=== PATIENT | female | born 1990 | race Hispanic/Latino ===

== ENCOUNTER 2017-08-30 15:54 | Inpatient (IN) | payer OTHER ==
[2017-08-30] MEDS ORDERED: Lidocaine 2% MPF 10 ML AMP (For Epidural Use) ONE (16:06)
[2017-08-30] MEDS ORDERED: Bupivacaine HCl 0.5%/Epinephrine 1:200,000/PF 30 ml Vial ONE (16:06)
[2017-08-30] MEDS ORDERED: Bupivacaine PF 0.5% 30 ML VIAL ONE (16:06)
[2017-08-30] MEDS ORDERED: ePHEDrine/0.9% NaCl/PF SYRINGE 50 mg/10 ml ONE (16:06)
[2017-08-30 16:33] VITALS: BMI 52.7
[2017-08-30] MEDS ORDERED: FLU VACC QS2017-18 36 mo. & older 0.5 ML SYRINGE IM ONE (17:30)
[2017-08-30 17:46] LABS: ALT (SGPT) 8 U/L (8-55); AST (SGOT) 18 U/L (5-34); Albumin 3.4 g/dL (3.5-5.0); Alkaline Phosphatase 170 U/L (40-150); Anion Gap 15 mmol/L (10-20); BUN (Urea Nitrogen) 11 mg/dL (7.0-18.7); Bilirubin, Total 0.2 mg/dL (0.2-1.2); Calc. Creatinine Clearance 227 mL/min (70-130); Calcium 9.6 mg/dL (7.8-10.44); Carbon Dioxide 20 mmol/L (22-29); Chloride 104 mmol/L (98-107); Estimated GFR-MDRD Greater than 90; Globulin 3.7 g/dL (2.4-3.5); Glucose 96 mg/dL (70-105); Potassium 3.8 mmol/L (3.5-5.1); Protein, Total 7.1 g/dL (6.0-8.3); Sodium 135 mmol/L (136-145)
[2017-08-30 17:53] LABS: #Monocytes 0.7 thou/uL (0.11-0.59); #Neutrophils 5.8 thou/uL (1.40-6.50); %Basophils 0.2 % (0.0-1.0); %Eosinophils 0.3 % (0.0-10.0); %Lymphocytes 13.2 % (21.0-51.0); %Monocytes 9.7 % (0.0-10.0); %Neutrophils 76.6 % (42.0-75.0); Hemoglobin 12.3 g/dL (12.0-16.0); Large Platelets SLIGHT; MDiff Complete? YES; Mean Corpuscular HGB CONC 35.1 g/dL (32.0-36.0); Mean Corpuscular Hemoglobin 33.3 pg (27.0-31.0); Mean Corpuscular Volume 95.1 fl (81.0-99.0); Mean Platelet Volume 12.2 fL (7.4-10.4); PLT Morphology Comment Appears Decreased; Platelet Count 94 thou/uL (130-400); RBC Distribution Width 11.7 % (11.5-14.5); Red Blood Cell (RBC) Count 3.69 mill/uL (4.20-5.40); White Blood Cell (WBC) Count 7.5 thou/uL (4.8-10.8)
[2017-08-30 18:06] LABS: Amphetamine Not Detected (NotDetected); Barbiturates Screen Not Detected (NotDetected); Benzodiazepine Screen Not Detected (NotDetected); Cocaine Metabolite Screen Not Detected (NotDetected); Medtox Reader # READER 4; Methadone Not Detected (NotDetected); Methamphetamine Not Detected (NotDetected); Opiate Screen Not Detected (NotDetected); Oxycodone Screen Not Detected (NotDetected); Phencyclidine (PCP) Not Detected (NotDetected); THC/Cannabinoid Screen Detected (NotDetected); Tricyclic Screen Not Detected (NotDetected)
[2017-08-30 18:07] LABS: Medtox Control Line Valid? VALID (VALID)
--- NOTE | 2017-08-30 18:24 | PDOC.LDHP ---
Labor and Delivery H&P Chief complaint: other (elevated BP) HPI: 27 yo @ 38w3d by 9w3d US not consistent with LMP presents for evaluation of elevated BPs. She denies headache, abdominal pain, or fevers/chills. SHe denies lower extremity swelling as well. She denies any contractions. She does admit to her normal amount of vaginal discharge, but no vaginal bleeding. She admits to feeling her fetus move. She has also denied any headaches or vision changes. No other concerns. Of note that patient has had a lot of stresses in her life at this time and has missed a lot of C visits. Current gestational age (weeks): 38 (38w3d) Due date: 09/10/17 Dating criteria: first trimester ultrasound Grav: 1 Para: 0 Current complications: other Abnormal US findings: No Current medications: none Previous surgical history: none Social history: none - Physical Exam Abnormal vital signs: elevated BP General: NAD Heart: RRR Lungs: CTAB Abdomen: gravid Extremeties: no edema FHT: category 2 (Tachycardia, baseline 160s, Moderate variability, no decels) [place] contractions every: NA - OB Labs Blood type: O RH: positive Antibody Screen: negative HIV: negative RPR: negative HEPSAg: negative 1 hour GCT: unknown 3 hour GTT: unknown GBS: unknown Rubella: immune - Assessment 1. Elevated BP -Pre-eclampsia workup including Urine Protein, Urine Creatinine, CBC, CMP -Consider BP medications 2. TIUP -GBS pending - heart tones, routine labs 3. Tachycardia -US pending - monitoring -Consider IVF - Plan Plan: observation in L&D <Rohan Shaikh - Last Filed: 08/30/17 18:20> Social history: drug use (marijuana use) - Vaginal Exam cm dilated: 1 Effacement: 50% Station: -3 - Assessment L&D Assessment: medically indicated induction (PIH at term with thrombocytopenia. GBS unknown poor care obesity tachycardia with otherwise reassuring signs.) <Romaine Manzano - Last Filed: 08/31/17 07:26> Allergies/Adverse Reactions: Allergies Allergy/AdvReac Type Severity Reaction Status Date / Time No Known Allergies Allergy Unverified 08/30/17 16:44
[2017-08-30] MEDS ORDERED: LR / Pitocin 40 units/1000 ml 1,000 ML IV PRN (18:34)
[2017-08-30] MEDS ORDERED: Calcium Gluc 4.6 MEQ/10 ML (100 MG/ML) SLOW IVP PRN (18:34)
[2017-08-30] MEDS ORDERED: Ibuprofen 800 MG TAB PO PRN (18:34)
[2017-08-30] MEDS ORDERED: Lidocaine 1% (PF) 30 ML VIAL SC PRN (18:34)
[2017-08-30] MEDS ORDERED: Ondansetron HCl/PF 4 MG/2 ML Vial IVP PRN (18:34)
[2017-08-30] MEDS ORDERED: Magnesium Sulfate 20 gm/500 ml 20 GM/500 ML BAG ONE (18:36)
[2017-08-30 18:44] LABS: Creatinine, Urine 276.16 mg/dL (47-110)
[2017-08-30] MEDS ORDERED: Misoprostol 100 MCG TAB VAG SCH (18:45)
[2017-08-30] MEDS ORDERED: Dinoprostone 10 MG Suppository VAG SCH (18:45)
[2017-08-30] MEDS ORDERED: Magnesium Sulfate 20 GM/WATER 500 ML BAG IVPB SCH (18:45)
[2017-08-30] MEDS: Lactated Ringer's 1,000 ML IV SCH (18:50)
--- NOTE | 2017-08-30 19:14 | ULT ---
ULTRASOUND OB: 08/30/17 HISTORY: Limited care, increased blood pressure. COMPARISON: None. TECHNIQUE: Ultrasound zamudio scale and color evaluation of the pelvis was performed via transabdominal approach. A single viable intrauterine with average ultrasound age of 35 week, 4 day. Estimated date o f delivery 09/30/17. This is concordant with clinical age. The cervical length is 5.4 cm. Biparietal diameter: 37 weeks, 2 days, 9.19 cm. Head circumference: 37 weeks, 0 day, 32.65 cm. Abdominal circumference: 36 weeks, 3 days, 32.53 cm. Femur length: 37 weeks, 0 day, 7.23 cm. Estimated weight is 3023 grams, 69th percentile. Limited evaluation of the spine, including the cervicothoracic and lumbar spine as well as the four c hamber heart, stomach, sacrum, lateral ventricles, cerebellum, three vessel cord were all normal. Umbilical artery peak systolic velocity is 45.4 cm/s. End diastolic velocity is 12.2 cm/s with systol ic to diastolic ratio of 3.7. heart rate is 163 beats per minute. Biophysical profile score is 8/8. Heart rate documented at 163 beats per minute. position is vertex and placenta is anterior. IMPRESSION: Single viable intrauterine with average ultrasound age of 35 week, 4 day. Estimated date of delivery 09/30/17. Estimated weight is 6 lb. 11 oz, 69th percentile. POS: HOME
[2017-08-30] MEDS ORDERED: Labetalol HCl 100 MG/20 ML VIAL SLOW IVP SCH (19:15)
[2017-08-30 19:25] LABS: HBSAg Index 0.22 S/CO (0-0.99); Hep B Surf Ag Non-Reactive S/CO (NonReactive)
[2017-08-30 19:39] LABS: Syphilis Antibody Nonreactive (Nonreactive); Syphilis Antibody Index 0.03 S/CO (<1.00 Non-Reactive)
[2017-08-31] MEDS ORDERED: Chloraseptic Spray 180 ml Bottle PO PRN (01:50)
--- NOTE | 2017-08-31 01:54 | PDOC.LDPN ---
Labor & Delivery Progress Note - Subjective Subjective: comfortable - Objective Vital signs reviewed and normal: yes General: NAD, resting SVE: deferred, plan to check 12 hours after cervidil placement FHT: category 1 - Assessment (1) Term Code(s): Z34.80 - ENCOUNTER FOR SUPRVSN OF NORMAL , UNSP TRIMESTER Current Visit: Yes Status: Acute Comment: Continue labor augmentation with cervidil Recheck cervix 12 hours s/p placement (2) Gestational hypertension Code(s): O13.9 - GESTATIONAL HTN W/O SIGNIFICANT PROTEINURIA, UNSP TRIMESTER Current Visit: Yes Status: Acute Comment: Since receiving IV labetalol, pts BPs have been in the 130s systolic. Continue IV labetalol PRN. Plan: continue plan of care, labor augmentation (cervidil ) -: Plan to recheck cervix 12 hours s/p placement of cervidil <Navneet Feliz - Last Filed: 08/31/17 01:52> Attending Addendum - Attending Addendum I personally evaluated the patient and discussed the management with Dr. I agree with the History, Examination, Assessment and Plan documented above with any addition or exceptions noted below. <Romaine Manzano - Last Filed: 08/31/17 07:29>
[2017-08-31] MEDS: Lactated Ringer's 1,000 ML IV SCH ×3 (02:45→11:47)
[2017-08-31] MEDS: Magnesium Sulfate 20 gm/500 ml 20 GM/500 ML BAG IVPB SCH ×3 (02:45→23:05)
--- NOTE | 2017-08-31 06:09 | PDOC.LDPN ---
Labor & Delivery Progress Note - Subjective Subjective: comfortable - Objective Vital signs reviewed and normal: yes General: NAD, resting SVE: deferred FHT: category 1 (Cat 1: baseline 150, accels presents, no decels, mod variability) [place] contractions every: none - Assessment (1) Term Code(s): Z34.80 - ENCOUNTER FOR SUPRVSN OF NORMAL , UNSP TRIMESTER Current Visit: Yes Status: Acute Comment: Continue labor augmentation with cervidil Recheck cervix 12 hours s/p placement (2) Gestational hypertension Code(s): O13.9 - GESTATIONAL HTN W/O SIGNIFICANT PROTEINURIA, UNSP TRIMESTER Current Visit: Yes Status: Acute Comment: Since receiving IV labetalol, pts BPs have been in the 130s systolic. Continue IV labetalol PRN. Plan: continue plan of care, labor augmentation (No changes at this time, we will recheck cervix 12 hours s/p cervidil placement)
--- NOTE | 2017-08-31 07:16 | PDOC.LDPN ---
Labor & Delivery Progress Note Plan: other (Induction of Labor with cervadil 2/2 Severe Range blood pressure ; Severe PreEclampsia (Initial bp 189/111, platelets @ 94)) -: at 38.3 weeks by 1TUS not consistent with LMP presents with elevated blood pressures from [facility] and with hx of few care visits. 1.)Severe PreEclampsia-Initial bp of 189/111, platelets @ 94. Pt provided with labetalol prn bp>160/110; Magnesium started. Plan: Continue magnesium. Magnesium checks every 4 hours. Continue Labetalol prn bp > 160/110 2.)Induction of Labor 2/2 Severe PreEclampsia-Cervadil placed at 1950 on 08/30 -Labor check @ 0750 on 08/31 and every 4 hours 3.)Early Term IUP-see above.
--- NOTE | 2017-08-31 09:01 | PDOC.LDPN ---
Labor & Delivery Progress Note - Subjective Subjective: comfortable - Objective Vital signs reviewed and normal: yes (bp's 120s/60s) General: NAD, resting Uterine fundus: non tender Dilation: 3 Effacement: 50% Station: -2 FHT: category 2, variable decelerations [place] contractions every: none Resuscitative measures: maternal IV fluids, maternal position change - Assessment (1) Severe pre-eclampsia Code(s): O14.10 - SEVERE PRE-ECLAMPSIA, UNSPECIFIED TRIMESTER Current Visit: Yes Status: Acute (2) Early Term IUP Current Visit: Yes Status: Acute (3) Encounter for induction of labor Code(s): Z34.90 - ENCNTR FOR SUPRVSN OF NORMAL , UNSP, UNSP TRIMESTER Current Visit: Yes Status: Acute Plan: pitocin for augmentation -: Plan: -: at 38.3 weeks by 1TUS not consistent with LMP presents with elevated blood pressures from [facility] and with hx of few care visits. 1.)Severe PreEclampsia-currently asymptomatic with blood pressures in range. Initial bp of 189/111, platelets @ 94. Pt provided with labetalol prn bp>160/110 ; Magnesium started. Plan: Blood pressures were 120s/60s overnight; pt is asymptomatic. Continue magnesium. Magnesium toxicity checks every 4 hours. Continue Labetalol prn bp >160/110 2.)Induction of Labor 2/2 Severe PreEclampsia-Mom not currently in active labor (not johnny and recent check at /-2) Cervadil placed at 1950 on 08/30 -Labor check @ 0750 on 08/31 and every 4 hours -Cervadil pulled at 0750. Will let her eat breakfast and start pitocin afterwards. 3.)Early Term IUP-see above.
[2017-08-31 09:34] LABS: Hemoglobin 11.5 g/dL (12.0-16.0); Mean Corpuscular HGB CONC 35.3 g/dL (32.0-36.0); Mean Corpuscular Hemoglobin 33.6 pg (27.0-31.0); Mean Platelet Volume 12.5 fL (7.4-10.4); Platelet Count 92 thou/uL (130-400); RBC Distribution Width 11.9 % (11.5-14.5); Red Blood Cell (RBC) Count 3.42 mill/uL (4.20-5.40); White Blood Cell (WBC) Count 8.2 thou/uL (4.8-10.8)
[2017-08-31] MEDS ORDERED: LR 500 ML/Oxytocin 10 units 500 ML ONE (09:43)
[2017-08-31] MEDS: LR 500 ML/Oxytocin 10 units 500 ML IV SCH (09:54)
[2017-08-31] MEDS ORDERED: Fentanyl 4 mcg/Marc 0.1% Cadd 100 ML ONE (10:06)
--- NOTE | 2017-08-31 10:06 | PDOC.EVN ---
Event Note - Event Note Event Note: Pt doing well, has mild URI sx since crhistmas with mildly productive cough of zamudio-white sputum but no pink. She denies SOB or RUQ pain. +FM. She does desire an epidural AVSS NAD Resp unlabored FHT Cat I [place] none Laboratory Last Values WBC 8.2 thou/uL (4.8-10.8) 08/31/17 08:59 RBC 3.42 mill/uL (4.20-5.40) L 08/31/17 08:59 Hgb 11.5 g/dL (12.0-16.0) L 08/31/17 08:59 Hct 32.5 % (36.0-47.0) L 08/31/17 08:59 MCV 95.0 fl (81.0-99.0) 08/31/17 08:59 MCH 33.6 pg (27.0-31.0) H 08/31/17 08:59 MCHC 35.3 g/dL (32.0-36.0) 08/31/17 08:59 RDW 11.9 % (11.5-14.5) 08/31/17 08:59 Plt Count 92 thou/uL (130-400) L 08/31/17 08:59 MPV 12.5 fL (7.4-10.4) H 08/31/17 08:59 Neutrophils % 76.6 % (42.0-75.0) H 08/30/17 17:05 Neutrophils % (Manual) Not Reportable 08/30/17 17:05 Lymphocytes % 13.2 % (21.0-51.0) L 08/30/17 17:05 Monocytes % 9.7 % (0.0-10.0) 08/30/17 17:05 Eosinophils % 0.3 % (0.0-10.0) 08/30/17 17:05 Basophils % 0.2 % (0.0-1.0) 08/30/17 17:05 Neutrophils # 5.8 thou/uL (1.40-6.50) 08/30/17 17:05 Lymphocytes # 1.0 thou/uL (1.20-3.40) L 08/30/17 17:05 Monocytes # 0.7 thou/uL (0.11-0.59) H 08/30/17 17:05 Eosinophils # 0.0 thou/uL (0.0-0.7) 08/30/17 17:05 Basophils # 0.0 thou/uL (0.0-0.2) 08/30/17 17:05 Large Platelets SLIGHT 08/30/17 17:05 Plt Morphology Comment Appears Decreased L 08/30/17 17:05 Sodium 135 mmol/L (136-145) L 08/30/17 17:05 Potassium 3.8 mmol/L (3.5-5.1) 08/30/17 17:05 Chloride 104 mmol/L (98-107) 08/30/17 17:05 Carbon Dioxide 20 mmol/L (22-29) L 08/30/17 17:05 Anion Gap 15 mmol/L (10-20) 08/30/17 17:05 BUN 11 mg/dL (7.0-18.7) 08/30/17 17:05 Creatinine 0.76 mg/dL (0.6-1.1) 08/30/17 17:05 Estimated GFR (MDRD) Greater than 90 08/30/17 17:05 Glucose 96 mg/dL (70-105) 08/30/17 17:05 Calcium 9.6 mg/dL (7.8-10.44) 08/30/17 17:05 Total Bilirubin 0.2 mg/dL (0.2-1.2) 08/30/17 17:05 AST 18 U/L (5-34) 08/30/17 17:05 ALT 8 U/L (8-55) 08/30/17 17:05 Alkaline Phosphatase 170 U/L (40-150) H 08/30/17 17:05 Serum Total Protein 7.1 g/dL (6.0-8.3) 08/30/17 17:05 Albumin 3.4 g/dL (3.5-5.0) L 08/30/17 17:05 Globulin 3.7 g/dL (2.4-3.5) H 08/30/17 17:05 Albumin/Globulin Ratio 0.9 g/dL (1.2-2.2) L 08/30/17 17:05 U Random Total Protein 41 mg/dL 08/30/17 17:27 Urine Creatinine 276.16 mg/dL (47-110) H 08/30/17 17:27 Urine Opiates Screen Not Detected (NotDetected) 08/30/17 17:27 Ur Oxycodone Screen Not Detected (NotDetected) 08/30/17 17:27 Urine Methadone Screen Not Detected (NotDetected) 08/30/17 17:27 Ur Propoxyphene Screen Not Detected (NotDetected) 08/30/17 17:27 Ur Barbiturates Screen Not Detected (NotDetected) 08/30/17 17:27 Ur Tricyclics Screen Not Detected (NotDetected) 08/30/17 17:27 Ur Phencyclidine Scrn Not Detected (NotDetected) 08/30/17 17:27 Ur Amphetamines Screen Not Detected (NotDetected) 08/30/17 17:27 U Methamphetamines Scrn Not Detected (NotDetected) 08/30/17 17:27 U Benzodiazepines Scrn Not Detected (NotDetected) 08/30/17 17:27 U Cocaine Metab Screen Not Detected (NotDetected) 08/30/17 17:27 U Cannabinoids Screen Detected (NotDetected) H 08/30/17 17:27 Drug Screen Comment () 08/30/17 17:27 Syphilis IgG/IgM Ab Nonreactive (Nonreactive) 08/30/17 17:04 Hep Bs Antigen Non-Reactive S/CO (NonReactive) 08/30/17 17:04 Blood Type O POSITIVE 08/30/17 17:04 Blood Bank Comment See comment: 08/30/17 17:04 A/P: * 38.4 week IUP with Cat I FHT * IOL for severe pre-e by BPs and platelets. Plts are stable. Cervidil, pitocin , Magnesium. So far has required 1 dose of labetalol
[2017-08-31] MEDS: Fentanyl 4mcg/Marcaine 0.1% Cassette 100 ML EPIDURAL SCH ×2 (10:40→20:11)
[2017-08-31] MEDS: ePHEDrine/0.9% NaCl/PF SYRINGE 50 mg/10 ml SLOW IVP PRN ×5 (11:00→11:40)
[2017-08-31] MEDS ORDERED: Lactated Ringer's 500 ML IV PRN (11:14)
[2017-08-31] MEDS ORDERED: Promethazine HCl 25 MG/ML VIAL IM PRN (11:14)
[2017-08-31] MEDS ORDERED: Eucerin (Mineral Oil/Petrolatum,White) 30 gm Jar TOP PRN (11:14)
[2017-08-31] MEDS ORDERED: Naloxone HCl 0.4 mg/ml Vial IVP PRN ×2 (11:14)
[2017-08-31] MEDS ORDERED: Ondansetron HCl/PF 4 MG/2 ML Vial IVP PRN (11:14)
[2017-08-31] MEDS ORDERED: Acetaminophen 325 MG TAB PO PRN (11:14)
[2017-08-31] MEDS ORDERED: diphenhydrAMINE 50 MG/ML VIAL IVP PRN (11:14)
[2017-08-31] MEDS ORDERED: Communication Order-Pharmacy FS SCH (11:15)
--- NOTE | 2017-08-31 13:03 | PDOC.LDPN ---
Labor & Delivery Progress Note - Subjective Subjective: other (called to bedside for persistent hypotension after epidural placement. baby with recurrent decelerations. Maternal bp to 62/24.) - Objective Abnormal vital signs: hypotensive (lowest @ 62/24) General: other (nausea and vomited X1) Uterine fundus: non tender FHT: category 2, late decelerations, absent or minimal variables [place] contractions every: irregular Resuscitative measures: maternal oxygen, maternal IV fluids (gave a total of 1500ml of lactated ringers), other (also provided Mom with two, 10mg doses of ephedrin. Anesthesia paged.) - Assessment (1) Severe pre-eclampsia Code(s): O14.10 - SEVERE PRE-ECLAMPSIA, UNSPECIFIED TRIMESTER Current Visit: Yes Status: Acute (2) Early Term IUP Current Visit: Yes Status: Acute (3) Encounter for induction of labor Code(s): Z34.90 - ENCNTR FOR SUPRVSN OF NORMAL , UNSP, UNSP TRIMESTER Current Visit: Yes Status: Acute (4) Hypotension Current Visit: Yes Status: Acute Plan: other -: 27 yo @ 38.4 with severe preeclampsia now s/p epidural placement with persistent hypotension and recurrent late decelerations of baby. Plan: Gave mom an initial 1L bolus of fluids. 2 doses of 10mg of ephedrin and an additional 500 ml bolus given. Paged anesthesia for assistance. Held pitocin and the epidural at this time.
--- NOTE | 2017-08-31 13:14 | PDOC.LDPN ---
Labor & Delivery Progress Note - Subjective Subjective: comfortable, vaginal pressure - Objective Vital signs reviewed and normal: yes General: NAD, resting, breathing through contractions Uterine fundus: non tender Dilation: 4 Effacement: 50% Station: -2 FHT: category 1 [place] contractions every: minimal AROM: meconium stained fluid (moderate meconium) FSE placed: yes Resuscitative measures: maternal oxygen, maternal IV fluids, maternal position change - Assessment (1) Severe pre-eclampsia Code(s): O14.10 - SEVERE PRE-ECLAMPSIA, UNSPECIFIED TRIMESTER Current Visit: Yes Status: Acute (2) Early Term IUP Current Visit: Yes Status: Acute (3) Encounter for induction of labor Code(s): Z34.90 - ENCNTR FOR SUPRVSN OF NORMAL , UNSP, UNSP TRIMESTER Current Visit: Yes Status: Acute (4) Hypotension Current Visit: Yes Status: Resolved Plan: continue plan of care, labor augmentation, pitocin for augmentation, resuscitative measures, other (FSE placed. Mom with VSS and baby with category 1 strip. Will monitor for one hour and if baby tolerates FSE will restart pitocin for augmentation of labor. Hypotension resolved. Epidural restarted at a lower rate. Patient received a total of 30mg ephedrine and 1500ml of lactated ringers.)
--- NOTE | 2017-08-31 16:43 | PDOC.LDPN ---
Labor & Delivery Progress Note - Subjective Subjective: comfortable - Objective Vital signs reviewed and normal: yes General: NAD, resting Uterine fundus: non tender SVE: Performed by Nurse Dilation: 5.5 Effacement: 75% Station: -2 FHT: category 1 (Baseline 120s), variability present [place] contractions every: 3 min - Assessment (1) Early Term IUP Current Visit: Yes Status: Acute (2) Encounter for induction of labor Code(s): Z34.90 - ENCNTR FOR SUPRVSN OF NORMAL , UNSP, UNSP TRIMESTER Current Visit: Yes Status: Acute (3) Severe pre-eclampsia Code(s): O14.10 - SEVERE PRE-ECLAMPSIA, UNSPECIFIED TRIMESTER Current Visit: Yes Status: Acute Qualifiers: Trimester: third trimester Qualified Code(s): O14.13 - Severe pre-eclampsia , third trimester Plan: continue plan of care -: BP stable. Will continue to monitor. No signs of Mg toxicity, UOP is 150-200 ml/hr. Pit at 10. Next check planned for 6 pm.
--- NOTE | 2017-08-31 18:30 | PDOC.LDPN ---
Labor & Delivery Progress Note - Subjective Subjective: comfortable - Objective Vital signs reviewed and normal: yes General: NAD, resting, breathing through contractions SVE: Performed by nurse Dilation: 5.5 Effacement: 75% Station: -2 FHT: category 1 [place] contractions every: 3-5 min AROM: meconium stained fluid IUPC placed: yes (Placed at 1820) - Assessment (1) Term Code(s): Z34.80 - ENCOUNTER FOR SUPRVSN OF NORMAL , UNSP TRIMESTER Current Visit: Yes Status: Acute Comment: Continue labor augmentation with cervidil Recheck cervix 12 hours s/p placement (2) Gestational hypertension Code(s): O13.9 - GESTATIONAL HTN W/O SIGNIFICANT PROTEINURIA, UNSP TRIMESTER Current Visit: Yes Status: Acute Comment: Since receiving IV labetalol, pts BPs have been in the 130s systolic. Continue IV labetalol PRN. Plan: continue plan of care, pitocin for augmentation, other -: BPs have been stable Pitocin currently at 12, will titrate for MV units 180-200. IUPC placed at 1820 Will recheck cervix at 2030. Continue current plan of care. <Navneet Feliz - Last Filed: 08/31/17 18:28> Attending Addendum - Attending Addendum FHT reviewed. IUPC placed by resident. Titrate pitocin to MVU 180-200 and reassess in 2 hours <Eileen Hernandez - Last Filed: 08/31/17 19:31>
--- NOTE | 2017-08-31 20:34 | PDOC.LDPN ---
Labor & Delivery Progress Note - Subjective Subjective: comfortable - Objective Vital signs reviewed and normal: yes General: NAD, resting, breathing through contractions SVE: Performed by nurse Dilation: 5.5 Effacement: 75% Station: -2 FHT: category 1 (Mod Variability, Baseline 140, accels present, 1 variable decel present ) [place] contractions every: 3-4 min Procedures: FSE placed again by nurse after it fell out AROM: meconium stained fluid (moderate, AROM performed during day from scalp electrode placement) FSE placed: yes - Assessment (1) Term Code(s): Z34.80 - ENCOUNTER FOR SUPRVSN OF NORMAL , UNSP TRIMESTER Current Visit: Yes Status: Acute Comment: Continue labor augmentation with cervidil Recheck cervix 12 hours s/p placement (2) Gestational hypertension Code(s): O13.9 - GESTATIONAL HTN W/O SIGNIFICANT PROTEINURIA, UNSP TRIMESTER Current Visit: Yes Status: Ruled-out Comment: Since receiving IV labetalol, pts BPs have been in the 130s systolic. Continue IV labetalol PRN. (3) Severe pre-eclampsia Code(s): O14.10 - SEVERE PRE-ECLAMPSIA, UNSPECIFIED TRIMESTER Current Visit: Yes Status: Acute Comment: Since receiving IV labetalol, pts BPs have been in the 130s systolic. Continue IV labetalol PRN. Patient is receiving mag. (4) Morbid obesity Code(s): E66.01 - MORBID (SEVERE) OBESITY DUE TO EXCESS CALORIES Current Visit : Yes Status: Acute Plan: continue plan of care (Continue plan of care, will recheck in 2 hours at 1030, Continue titrating pit), pitocin for augmentation (Pit at 16 currently)
[2017-08-31] MEDS: Diabetic Tussin 200 MG/10 ML UDCUP PO PRN (21:49)
[2017-09-01] MEDS: Fentanyl 4mcg/Marcaine 0.1% Cassette 100 ML EPIDURAL SCH (01:55)
[2017-09-01] MEDS ORDERED: Bicitra 30 ML UDCUP ONE (02:15)
[2017-09-01] MEDS ORDERED: Bicitra 30 ML UDCUP PO SCH (02:15)
[2017-09-01] MEDS ORDERED: CEFAZOLIN/Water 2 GM/20 ML SYRINGE ONE (02:16)
[2017-09-01] MEDS ORDERED: Morphine PF 1 MG/ML SYR ONE (02:21)
[2017-09-01] MEDS ORDERED: Fentanyl 100 MCG/2 ML VIAL ONE (02:21)
[2017-09-01] MEDS ORDERED: Lidocaine 2% PF 5 ML VIAL ONE ×2 (02:22→03:58)
[2017-09-01] MEDS ORDERED: Ondansetron HCl/PF 4 MG/2 ML Vial ONE (02:22)
[2017-09-01] MEDS ORDERED: Oxytocin 10 UNITS/ML VIAL ONE ×2 (02:22→03:32)
[2017-09-01] MEDS ORDERED: PHENYLEPHRINE-NS 100 MCG/ML 10 ML SYRINGE ONE (02:45)
[2017-09-01] MEDS ORDERED: Naloxone HCl 0.4 mg/ml Vial IVP PRN ×2 (03:05)
[2017-09-01] MEDS ORDERED: diphenhydrAMINE 50 MG/ML VIAL IVP PRN (03:05)
[2017-09-01] MEDS ORDERED: Promethazine HCl 25 MG SUPP PR PRN (03:05)
[2017-09-01] MEDS ORDERED: Ondansetron HCl/PF 4 MG/2 ML Vial IVP PRN (03:05)
[2017-09-01] MEDS ORDERED: Ketorolac Tromethamine 30 MG/ML VIAL IVP PRN (03:05)
[2017-09-01] MEDS ORDERED: Promethazine HCl 25 MG/ML VIAL IM PRN (03:05)
[2017-09-01] MEDS ORDERED: Naloxone HCl 0.4 mg/ml Vial IV PRN (03:05)
[2017-09-01] MEDS ORDERED: Eucerin (Mineral Oil/Petrolatum,White) 30 gm Jar TOP PRN (03:05)
[2017-09-01] MEDS ORDERED: HYDROmorphone 2 MG/ML VIAL SLOW IVP PRN (03:06)
[2017-09-01] MEDS ORDERED: Ketorolac Tromethamine 30 MG/ML VIAL IVP SCH (03:15)
[2017-09-01] MEDS ORDERED: Communication Order-Pharmacy FS SCH (03:15)
[2017-09-01 03:26] LABS: Actual Bicarbonate (HCO3a) 22.3 mEq/L (22-26); Base Excess (BEa) -9.4 mEq/L (0 (+/-) 2.5)
[2017-09-01] MEDS ORDERED: HYDROcodone/Acetaminophen 5/325 mg Tablet PO PRN ×5 (04:33→10:47)
[2017-09-01] MEDS ORDERED: Simethicone Chewable 80 MG TAB PO PRN (04:33)
[2017-09-01] MEDS ORDERED: Lanolin Ointment 7 GM TUBE TOP PRN (04:33)
[2017-09-01] MEDS ORDERED: Adacel (T-DAP) 0.5 ML VIAL IM ONE (04:33)
[2017-09-01] MEDS ORDERED: diphenhydrAMINE 25 MG CAP PO PRN (04:33)
[2017-09-01] MEDS ORDERED: Meperidine HCl/PF 25 MG/ML VIAL ONE ×2 (04:46→05:00)
[2017-09-01] MEDS: Meperidine HCl/PF 25 MG/ML VIAL SLOW IVP PRN ×2 (04:47→05:06)
[2017-09-01] MEDS ORDERED: Gentamicin 80 MG/2 ML VIAL IVPB SCH (05:00)
[2017-09-01] MEDS: Clindamycin/D5W 900 MG in Premix Bag 1 BAG IVPB SCH ×3 (05:09→22:10)
[2017-09-01] MEDS: Gentamicin Sulfate 410 MG in Sodium Chloride 0.9% 100 ML IVPB SCH (06:23)
--- NOTE | 2017-09-01 06:53 | OP-2 ---
DATE OF PROCEDURE: 09/01/2017 RESIDENT: Sim Ontiveros MD ALIGNING INSPECTOR: Eileen Hernandez MD ATTENDING SURGEON: Eileen Hernandez MD PROCEDURE: Primary low transverse indicated for arrest of dilation. PREOPERATIVE DIAGNOSES: 1. Term intrauterine . 2. Preeclampsia with severe range blood pressures, requiring magnesium. 3. Thrombocytopenia, likely secondary to preeclampsia. 4. GBS unknown. POSTOPERATIVE DIAGNOSES: 1. Term intrauterine , delivered. 2. Preeclampsia with severe range blood pressures and thrombocytopenia, requiring magnesium. 3. GBS unknown ANESTHESIA: Epidural. INDICATIONS: Ms. Kay is a 27-year-old G1, P0 at 38.4 weeks gestation, who presented for triage of elevated blood pressure and was induced for preeclampsia with severe range blood pressure and thrombocytopenia. After arrest of dilation, a primary was performed. PROCEDURE IN DETAIL: Risks, benefits, and alternatives were explained to the patient, who expressed understanding and provided consent. Preoperative antibiotics of cefazolin 2 grams IV were given. The patient was taken to the operating room and had a bolus through her epidural anesthesia. She was placed in supine position with left lateral tilt and was prepped and draped in the usual sterile fashion. Pfannenstiel incision was made with scalpel and carried down to level of fascia, which was sharply nicked. The fascia was extended bilaterally with curved Chambers scissors. The inferior superior edge of the fascia were elevated with Amor clamps and the underlying rectus muscles were sharply and bluntly dissected free. The rectus muscles were divided digitally and manually retracted. The peritoneum was bluntly entered. An Med O retractor was placed. A low transverse curvilinear score was made with a scalpel and the uterus was entered in the midline with the scalpel. Thick meconium-stained fluid was seen. Hysterotomy was extended manually in the cranio/caudal fashion. was noted to be in the vertex position and noted to be deep in the pelvis. After the head was disengaged and elevated, the infant was delivered easily by fundal pressure. Mouth and nares were bulb suctioned. Cord was cut and clamped. A cord segment was obtained for cord gases. Cord blood was also obtained at this time. Placenta was manually extracted. The uterus was externalized and the endometrium was curetted with dry lap. The uterus was then replaced and the hysterotomy was closed with an 0 PDS suture in a running locking fashion. This was followed by a nonlocking imbricating suture using 0 PDS. Hemostasis was noted. The abdomen was swept free of clots. Med O retractor was removed and the hysterotomy was again inspected and found to be hemostatic. The peritoneum was closed with a running 2-0 Monocryl suture. The fascia was closed with 2 separate running nonlocking 0 PDS sutures. The skin was reapproximated with isaiah and pressure dressing was applied. All counts were correct x3. The patient tolerated the procedure well and was taken back to Labor and Delivery floor for an additional 24 hours of magnesium in stable condition. ESTIMATED BLOOD LOSS: 800 mL COMPLICATIONS: None. SPECIMENS: Cord blood and gas sent to lab for blood type analysis FINDINGS: Grossly normal female with Apgars of 8 and 9, delivered at 0315 hours. Grossly normal placenta with three-vessel cord discarded. DRAINS: Mcdowell catheter to gravity, draining clear urine. The patient had approximately 150 mL urine output during the procedure. Dr. Hernandez was present for the entire procedure. ESPERANZA
[2017-09-01] MEDS: Prenatal Vitamin 1 TAB PO SCH (07:30)
--- NOTE | 2017-09-01 07:47 | PDOC.PP ---
Post Progress Note Post Day #: 1 Subjective: She reports her pain to be a 6/10. Reports minimal bleeding. Has not ambulated or passed flatus at this point. She is planning to eat some jello for breakfast. BP's overnight in the 140s-150s systolic. Denies headache or vision changes. PO intake tolerated: yes Flatus: no Ambulation: no Vital Signs (12 hours) Temp Pulse Resp 08/31/17 20:00 97.8 F 95 22 H Weight Weight 130.635 kg - Physical Examination General: NAD Cardiovascular: no m/r/g, RRR Respiratory: clear to auscultation bilaterally, non-labored breathing Abdominal: + bowel sounds, appropriately TTP Deviation from normal: adequate urine output via michele Skin: CS incision dry & intact, no rash Neurological: no gross focal deficits (normal patellar reflexes) Psychiatric: A&Ox3, normal affect Result Diagrams: 08/31/17 08:59 08/30/17 17:05 Additional Labs: Post Labs Blood Type O POSITIVE 08/30/17 17:04 Hep Bs Antigen Non-Reactive S/CO (NonReactive) 08/30/17 17:04 Rubella IgG Antibody 2.43 index (Immune >0.99) 08/30/17 17:04 (1) Severe pre-eclampsia Code(s): O14.10 - SEVERE PRE-ECLAMPSIA, UNSPECIFIED TRIMESTER Status: Acute Qualifiers: Trimester: third trimester Qualified Code(s): O14.13 - Severe pre-eclampsia , third trimester Comment: Pt is currently on magnesium. Will continue for 24-48 hours . Will continue magnesium toxicity checks every 4 hours. Will continue to monitor bp's and provide labetalol prn. Will continue to monitor I/O 's, renal function, patellar reflex etc for s/s of magnesium toxicity. (2) Early Term IUP Status: Acute Comment: 27 yo -->1 presents with severe preeclampsia at 38.3wks and was subsequently induced. She is now s/p csection 2/2 arrest of dilation. (3) Encounter for induction of labor Code(s): Z34.90 - ENCNTR FOR SUPRVSN OF NORMAL , UNSP, UNSP TRIMESTER Status: Acute Comment: see above. (4) Arrest of dilation, delivered, current hospitalization Code(s): O62.1 - SECONDARY UTERINE INERTIA Status: Acute Comment: Arrest of dilation overnight. Taken for csection, now s/p LTCS @ 0300. (5) Delivered by section Code(s): O82 - ENCOUNTER FOR DELIVERY WITHOUT INDICATION Status: Acute Comment: Will monitor I/O's. Advance diet as tolerated and encourage PO intake, and ambulation. Will provide ibuprofen and norco for adequate pain control. CBC and CMP post csection are pending. (6) Morbid obesity Code(s): E66.01 - MORBID (SEVERE) OBESITY DUE TO EXCESS CALORIES Status: Acute (7) Hypotension Status: Resolved
[2017-09-01] MEDS: Docusate Calcium (SURFAK) 240 MG CAP PO SCH ×2 (09:00→22:10)
[2017-09-01 10:01] LABS: Hemoglobin 9.5 g/dL (12.0-16.0); Mean Corpuscular HGB CONC 35.1 g/dL (32.0-36.0); Mean Corpuscular Hemoglobin 33.8 pg (27.0-31.0); Mean Corpuscular Volume 96.2 fl (81.0-99.0); Mean Platelet Volume 12.2 fL (7.4-10.4); Platelet Count 76 thou/uL (130-400); RBC Distribution Width 11.6 % (11.5-14.5); White Blood Cell (WBC) Count 9.3 thou/uL (4.8-10.8)
--- NOTE | 2017-09-01 10:09 | PDOC.EVN ---
Event Note - Event Note Event Note: Notified at 1005 that patient temp now 102. On Gent and Clinda. I will add ( resident to order) ampicillin for gram pos coverage.
[2017-09-01 10:13] LABS: ALT (SGPT) 7 U/L (8-55); AST (SGOT) 23 U/L (5-34); Albumin 2.5 g/dL (3.5-5.0); Alkaline Phosphatase 137 U/L (40-150); Anion Gap 13 mmol/L (10-20); BUN (Urea Nitrogen) 8 mg/dL (7.0-18.7); Bilirubin, Total 0.3 mg/dL (0.2-1.2); Calc. Creatinine Clearance 199 mL/min (70-130); Carbon Dioxide 19 mmol/L (22-29); Chloride 99 mmol/L (98-107); Estimated GFR-MDRD 78; Globulin 2.8 g/dL (2.4-3.5); Glucose 114 mg/dL (70-105); Potassium 3.7 mmol/L (3.5-5.1); Protein, Total 5.3 g/dL (6.0-8.3); Sodium 127 mmol/L (136-145)
--- NOTE | 2017-09-01 10:21 | PDOC.EVN ---
Event Note - Event Note Event Note: Flu A POSITIVE. 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 Although SXs are >24 hours, we will add Tamiflu as some temperature effect may be due to this viral syndrome as well.
--- NOTE | 2017-09-01 10:26 | PDOC.PP ---
Post Progress Note Post Day #: 1 Subjective: Pt found to have a temperature of 102.6F, currently on gentamicin and clindamicin. Mom had an unknown GBS status. Mom has also been complaining of a cold for 1-2 days. Vital Signs (12 hours) Temp Pulse Resp 09/01/17 08:00 102.1 F H 114 H 22 H Weight Weight 130.635 kg Result Diagrams: 09/01/17 09:36 09/01/17 09:36 Additional Labs: Post Labs Blood Type O POSITIVE 08/30/17 17:04 Hep Bs Antigen Non-Reactive S/CO (NonReactive) 08/30/17 17:04 Rubella IgG Antibody 2.43 index (Immune >0.99) 08/30/17 17:04 (1) Influenza A Code(s): J10.1 - FLU DUE TO OTH IDENT INFLUENZA VIRUS W OTH RESP MANIFEST Status: Acute Comment: After spiking a fever this morning, mom was found to be influenza A positive. Will start Tamiflu although since Mom has had cold like symptoms for ~2 days, the effectiveness of tamiflu may be diminished. (2) Chorioamnionitis, delivered, current hospitalization Code(s): O41.1290 - CHORIOAMNIONITIS, UNSP TRIMESTER, NOT APPLICABLE OR UNSP Status: Acute Comment: Mom was found to have a fever this morning after having a csection last night. Started on gentamicin and clindamicin post section. However, do to spiking a fever over 101F, we will add ampicillin for triple therapy for her IAI/chorioamionitis. Will continue to monitor vitals signs and provide supportive care. (3) Severe pre-eclampsia Code(s): O14.10 - SEVERE PRE-ECLAMPSIA, UNSPECIFIED TRIMESTER Status: Acute Qualifiers: Trimester: third trimester Qualified Code(s): O14.13 - Severe pre-eclampsia , third trimester Comment: Pt's platelets were 76 this morning (down from yesterday at 90). Will recheck this evening. No s/s of active bleeding. She is currently on magnesium. Will continue for 24 hours and if continued signs of preeclampsia with severe features, we will continue mag for an additional 24 hours. Will continue magnesium toxicity checks every 4 hours. Will continue to monitor bp's and provide labetalol prn. Will continue to monitor I/O's, renal function, patellar reflex etc for s/s of magnesium toxicity. (4) Thrombocytopenia Code(s): D69.6 - THROMBOCYTOPENIA, UNSPECIFIED Status: Acute Comment: 2/2 Preeclampsia with severe features and s/p csection at 0300 this am. Will continue to monitor. (5) Early Term IUP Status: Acute Comment: 27 yo -->1 presents with severe preeclampsia at 38.3wks and was subsequently induced. She is now s/p csection 2/2 arrest of dilation. (6) Encounter for induction of labor Code(s): Z34.90 - ENCNTR FOR SUPRVSN OF NORMAL , UNSP, UNSP TRIMESTER Status: Acute Comment: see above. (7) Arrest of dilation, delivered, current hospitalization Code(s): O62.1 - SECONDARY UTERINE INERTIA Status: Acute Comment: Arrest of dilation overnight. Taken for csection, now s/p LTCS @ 0300. (8) Delivered by section Code(s): O82 - ENCOUNTER FOR DELIVERY WITHOUT INDICATION Status: Acute Comment: Will monitor I/O's. Advance diet as tolerated and encourage PO intake, and ambulation. Will provide ibuprofen and norco for adequate pain control. CBC and CMP post csection are pending. (9) Morbid obesity Code(s): E66.01 - MORBID (SEVERE) OBESITY DUE TO EXCESS CALORIES Status: Acute (10) Hypotension Status: Resolved
[2017-09-01] MEDS ORDERED: Acetaminophen 650 MG in Premix Bag 1 BAG IVPB PRN (10:37)
[2017-09-01] MEDS ORDERED: Acetaminophen 1,000 MG in Premix Bag 1 BAG IVPB PRN (10:45)
[2017-09-01] MEDS ORDERED: Acetaminophen 650 MG in Premix Bag 1 BAG IVPB SCH (10:45)
[2017-09-01] MEDS: Lactated Ringer's 1,000 ML IV SCH ×3 (11:05→19:49)
[2017-09-01] MEDS: Magnesium Sulfate 20 gm/500 ml 20 GM/500 ML BAG IVPB SCH ×2 (11:14→21:18)
--- NOTE | 2017-09-01 11:37 | PDOC.EVN ---
Event Note - Event Note Event Note: Platelets this AM around 0800 now 75...still on Mag. Recheck at 1999 (12 hours) . LFTs ok, creatinie OK...so no criteria for help now. Urine OK
[2017-09-01] MEDS ORDERED: HYDROcodone/Acetaminophen 5/325 mg Tablet PO SCH (12:00)
--- NOTE | 2017-09-01 12:16 | PDOC.EVN ---
Event Note - Event Note Event Note: CXR ordered for Influenza A positive...r/o pulmonary process.
[2017-09-01] MEDS: Ampicillin 2 GM in Sodium Chloride 0.9% 100 ML IVPB SCH ×3 (13:37→23:58)
[2017-09-01] MEDS: Oseltamivir 75 MG CAP PO SCH ×2 (13:39→20:54)
--- NOTE | 2017-09-01 15:21 | RAD ---
PORTABLE CHEST: HISTORY: Influenza A positive. FINDINGS: Heart size and mediastinum are within normal limits. The lungs are clear of infiltrates. No bony fi ndings. IMPRESSION: No active intrathoracic disease. POS: [facility]
--- NOTE | 2017-09-01 17:08 | PDOC.PP ---
Post Progress Note Post Day #: 1 Subjective: Patient doing well overall. Continues to complain of URI sx. She denies SHARPE, nausea, flushing/diaphoresis. PO intake tolerated: yes Vital Signs (12 hours) Temp Pulse Resp BP 09/01/17 16:00 98.4 F 93 20 121/67 09/01/17 12:00 102.5 F H 114 H 22 H 132/68 09/01/17 08:00 102.1 F H 114 H 22 H Weight Weight 130.635 kg - Physical Examination General: NAD Cardiovascular: no m/r/g, RRR Respiratory: clear to auscultation bilaterally Abdominal: + bowel sounds Psychiatric: A&Ox3 Result Diagrams: 09/01/17 09:36 09/01/17 09:36 Additional Labs: Post Labs Blood Type O POSITIVE 08/30/17 17:04 Hep Bs Antigen Non-Reactive S/CO (NonReactive) 08/30/17 17:04 Rubella IgG Antibody 2.43 index (Immune >0.99) 08/30/17 17:04 (1) Severe pre-eclampsia Code(s): O14.10 - SEVERE PRE-ECLAMPSIA, UNSPECIFIED TRIMESTER Status: Acute Qualifiers: Trimester: third trimester Qualified Code(s): O14.13 - Severe pre-eclampsia , third trimester Comment: No signs/sx of Mg toxicity. BPs well-controlled. Urine outpt between 100-400 cc/hr With thrombocytopenia, will repeat cbc this evening. Plt transfusion may be required if < 50,000 or if pt develops signs of bleeding. (2) Chorioamnionitis, delivered, current hospitalization Code(s): O41.1290 - CHORIOAMNIONITIS, UNSP TRIMESTER, NOT APPLICABLE OR UNSP Status: Acute Comment: Continue Amp/Gent/Clinda. Tylenol for fever.
[2017-09-01] MEDS: LR 500 ML/Oxytocin 10 units 500 ML IV SCH (19:24)
[2017-09-01] MEDS: [UNRECOGNIZED DRUG - REMARK] FS SCH (19:24)
[2017-09-01] MEDS ORDERED: Acetaminophen 1,000 MG in Premix Bag 1 BAG IVPB SCH ×2 (20:00→23:59)
[2017-09-01 21:19] LABS: #Lymphocytes 0.8 thou/uL (1.20-3.40); #Monocytes 0.5 thou/uL (0.11-0.59); #Neutrophils 7.7 thou/uL (1.40-6.50); %Eosinophils 0.4 % (0.0-10.0); %Lymphocytes 8.6 % (21.0-51.0); %Monocytes 5.9 % (0.0-10.0); %Neutrophils 85.1 % (42.0-75.0); Hemoglobin 9.4 g/dL (12.0-16.0); Mean Corpuscular HGB CONC 35.1 g/dL (32.0-36.0); Mean Corpuscular Hemoglobin 33.7 pg (27.0-31.0); Mean Corpuscular Volume 95.9 fl (81.0-99.0); Mean Platelet Volume 11.6 fL (7.4-10.4); Platelet Count 76 thou/uL (130-400); RBC Distribution Width 11.6 % (11.5-14.5); Red Blood Cell (RBC) Count 2.79 mill/uL (4.20-5.40); White Blood Cell (WBC) Count 9.1 thou/uL (4.8-10.8)
--- NOTE | 2017-09-01 22:24 | PDOC.PP ---
Post Progress Note Post Day #: 1 Subjective: Patient states that she is doing well, she does not have any complaints. She denies any headaches, vision changes, nausea, diaphoresis. PO intake tolerated: yes Vital Signs (12 hours) Temp Pulse Resp BP 09/01/17 20:00 102.0 F H 105 H 22 H 09/01/17 16:00 98.4 F 93 20 121/67 09/01/17 12:00 102.5 F H 114 H 22 H 132/68 Weight Weight 130.635 kg - Physical Examination General: NAD Cardiovascular: no m/r/g, RRR Respiratory: clear to auscultation bilaterally, non-labored breathing Abdominal: + bowel sounds Psychiatric: A&Ox3 Result Diagrams: 09/01/17 20:54 09/01/17 09:36 Additional Labs: Post Labs Blood Type O POSITIVE 08/30/17 17:04 Hep Bs Antigen Non-Reactive S/CO (NonReactive) 08/30/17 17:04 Rubella IgG Antibody 2.43 index (Immune >0.99) 08/30/17 17:04 (1) Term Code(s): Z34.80 - ENCOUNTER FOR SUPRVSN OF NORMAL , UNSP TRIMESTER Status: Resolved Comment: Continue labor augmentation with cervidil Recheck cervix 12 hours s/p placement (2) Gestational hypertension Code(s): O13.9 - GESTATIONAL HTN W/O SIGNIFICANT PROTEINURIA, UNSP TRIMESTER Status: Ruled-out Comment: Since receiving IV labetalol, pts BPs have been in the 130s systolic. Continue IV labetalol PRN. (3) Severe pre-eclampsia Code(s): O14.10 - SEVERE PRE-ECLAMPSIA, UNSPECIFIED TRIMESTER Status: Acute Comment: Patient's blood pressures have remained stable. No signs of mag toxicity. Patient's platelets have stabilized, will continue to trend. Continue current plan of care. (4) Morbid obesity Code(s): E66.01 - MORBID (SEVERE) OBESITY DUE TO EXCESS CALORIES Status: Acute (5) Chorioamnionitis, delivered, current hospitalization Code(s): O41.1290 - CHORIOAMNIONITIS, UNSP TRIMESTER, NOT APPLICABLE OR UNSP Status: Acute Comment: Continue Amp/Gent/Clinda. Tylenol for fever.
[2017-09-02] MEDS: Diabetic Tussin 200 MG/10 ML UDCUP PO PRN (00:10)
[2017-09-02] MEDS ORDERED: NIFEdipine XL 30 MG TAB PO SCH (01:30)
[2017-09-02] MEDS: Acetaminophen 1,000 MG in Premix Bag 1 BAG IVPB PRN ×2 (01:35→08:37)
--- NOTE | 2017-09-02 04:06 | PDOC.PP ---
Post Progress Note Post Day #: 1 Subjective: Patient has continued to do well, she has no complaints. She denies any vision changes, headache, nausea, diaphoresis. PO intake tolerated: yes Vital Signs (12 hours) Temp Pulse Resp BP 09/02/17 01:58 102 H 136/77 09/02/17 00:00 100.4 F H 103 H 22 H 09/01/17 20:00 102.0 F H 105 H 22 H Weight Weight 130.635 kg - Physical Examination General: NAD Cardiovascular: no m/r/g, RRR Respiratory: clear to auscultation bilaterally Abdominal: + bowel sounds Neurological: no gross focal deficits Psychiatric: A&Ox3 Result Diagrams: 09/01/17 20:54 09/01/17 09:36 Additional Labs: Post Labs Blood Type O POSITIVE 08/30/17 17:04 Hep Bs Antigen Non-Reactive S/CO (NonReactive) 08/30/17 17:04 Rubella IgG Antibody 2.43 index (Immune >0.99) 08/30/17 17:04 (1) Term Code(s): Z34.80 - ENCOUNTER FOR SUPRVSN OF NORMAL , UNSP TRIMESTER Status: Resolved Comment: Continue labor augmentation with cervidil Recheck cervix 12 hours s/p placement (2) Gestational hypertension Code(s): O13.9 - GESTATIONAL HTN W/O SIGNIFICANT PROTEINURIA, UNSP TRIMESTER Status: Ruled-out Comment: Since receiving IV labetalol, pts BPs have been in the 130s systolic. Continue IV labetalol PRN. (3) Severe pre-eclampsia Code(s): O14.10 - SEVERE PRE-ECLAMPSIA, UNSPECIFIED TRIMESTER Status: Acute Comment: No signs or symptoms of Mg toxicity, blood pressures have remained stable and within normal limits. No changes in plan at this time. (4) Morbid obesity Code(s): E66.01 - MORBID (SEVERE) OBESITY DUE TO EXCESS CALORIES Status: Acute (5) Chorioamnionitis, delivered, current hospitalization Code(s): O41.1290 - CHORIOAMNIONITIS, UNSP TRIMESTER, NOT APPLICABLE OR UNSP Status: Acute Comment: Continue Amp/Gent/Clinda. Tylenol for fever.
[2017-09-02] MEDS: Lactated Ringer's 1,000 ML IV SCH (04:37)
[2017-09-02] MEDS ORDERED: traMADol HCl 50 MG TAB PO PRN ×2 (05:22)
[2017-09-02] MEDS ORDERED: Acetaminophen 500 MG TAB PO PRN (05:54)
[2017-09-02] MEDS ORDERED: Ibuprofen 600 MG TAB PO SCH (06:00)
[2017-09-02 06:17] LABS: #Lymphocytes 0.7 thou/uL (1.20-3.40); #Monocytes 0.3 thou/uL (0.11-0.59); #Neutrophils 7.1 thou/uL (1.40-6.50); %Eosinophils 0.1 % (0.0-10.0); %Lymphocytes 8.4 % (21.0-51.0); %Monocytes 4.2 % (0.0-10.0); %Neutrophils 87.3 % (42.0-75.0); Hemoglobin 9.2 g/dL (12.0-16.0); Mean Corpuscular HGB CONC 33.5 g/dL (32.0-36.0); Mean Corpuscular Hemoglobin 32.8 pg (27.0-31.0); Mean Corpuscular Volume 97.9 fl (81.0-99.0); Mean Platelet Volume 11.7 fL (7.4-10.4); Platelet Count 84 thou/uL (130-400); RBC Distribution Width 11.8 % (11.5-14.5); Red Blood Cell (RBC) Count 2.82 mill/uL (4.20-5.40); White Blood Cell (WBC) Count 8.1 thou/uL (4.8-10.8)
[2017-09-02 06:27] LABS: Anion Gap 12 mmol/L (10-20); BUN (Urea Nitrogen) 8 mg/dL (7.0-18.7); Calc. Creatinine Clearance 213 mL/min (70-130); Calcium 6.8 mg/dL (7.8-10.44); Carbon Dioxide 23 mmol/L (22-29); Chloride 104 mmol/L (98-107); Estimated GFR-MDRD 84; Glucose 95 mg/dL (70-105); Potassium 4.1 mmol/L (3.5-5.1); Sodium 135 mmol/L (136-145)
[2017-09-02] MEDS: Gentamicin Sulfate 410 MG in Sodium Chloride 0.9% 100 ML IVPB SCH (06:29)
[2017-09-02] MEDS ORDERED: cloNIDine 0.1 MG TAB PO PRN (08:11)
[2017-09-02] MEDS ORDERED: cloNIDine 0.1 MG TAB PO SCH (08:30)
[2017-09-02] MEDS: NIFEdipine XL 30 MG TAB PO SCH (08:32)
[2017-09-02] MEDS: Prenatal Vitamin 1 TAB PO SCH (08:34)
[2017-09-02] MEDS: Docusate Calcium (SURFAK) 240 MG CAP PO SCH ×2 (08:34→21:43)
[2017-09-02] MEDS: [UNRECOGNIZED DRUG - REMARK] FS SCH (08:35)
[2017-09-02] MEDS: Ampicillin 2 GM in Sodium Chloride 0.9% 100 ML IVPB SCH (08:36)
--- NOTE | 2017-09-02 08:41 | PDOC.PP ---
Post Progress Note Post Day #: 2 Subjective: Mom reports chills this morning and feels tired. She fevered to 102F overnight, fever broke, but back up to 102F this AM. States she's hungry and would like to eat this morning. Reports minimal lochia. States she has abdominal pain with coughing and movement. Not ambulating yet. Reports she has passed flatus. Voiding via michele (adequate output). Reports baby is well. She was this morning upon entering the room. Mom had a mask on while . PO intake tolerated: yes Flatus: yes Ambulation: no Vital Signs (12 hours) Temp Pulse Resp BP BP Pulse Ox 09/02/17 08:32 104 H 158/91 H 09/02/17 07:53 102.1 F H 114 H 20 179/93 H 95 09/02/17 06:00 98.7 F 102 H 20 172/77 H 94 L 09/02/17 04:39 99.4 F 89 20 09/02/17 04:33 99.4 F 09/02/17 04:00 99.4 F 95 20 09/02/17 01:58 102 H 136/77 09/02/17 00:00 100.4 F H 103 H 22 H Weight Weight 130.635 kg - Physical Examination General: NAD Cardiovascular: no m/r/g, RRR Respiratory: clear to auscultation bilaterally Abdominal: lochia (minimal), appropriately TTP Skin: CS incision dry & intact Neurological: no gross focal deficits Psychiatric: A&Ox3, normal affect Result Diagrams: 09/02/17 06:01 09/02/17 06:01 Additional Labs: Post Labs Blood Type O POSITIVE 08/30/17 17:04 Hep Bs Antigen Non-Reactive S/CO (NonReactive) 08/30/17 17:04 Rubella IgG Antibody 2.43 index (Immune >0.99) 08/30/17 17:04 (1) Delivered by section Code(s): O82 - ENCOUNTER FOR DELIVERY WITHOUT INDICATION Status: Acute Comment: Will monitor I/O's. Advance diet as tolerated and encourage PO intake, and ambulation. Will provide ibuprofen and norco for adequate pain control. Tylenol prn fever. Plan to dc michele this am. (2) Influenza A Code(s): J10.1 - FLU DUE TO OTH IDENT INFLUENZA VIRUS W OTH RESP MANIFEST Status: Acute Comment: Continue Tamiflu. Mom with intermittant fevers throughout the night. Continue to provide supportive care to include tylenol IV prn fever. (3) Chorioamnionitis, delivered, current hospitalization Code(s): O41.1290 - CHORIOAMNIONITIS, UNSP TRIMESTER, NOT APPLICABLE OR UNSP Status: Acute Comment: Continue Amp/Gent/Clinda. Tylenol for fever. (4) Severe pre-eclampsia Code(s): O14.10 - SEVERE PRE-ECLAMPSIA, UNSPECIFIED TRIMESTER Status: Acute Qualifiers: Trimester: third trimester Qualified Code(s): O14.13 - Severe pre-eclampsia , third trimester Comment: Magnesium dc'd this am at 0300. Platelets improved this am to 84. Bp spiked to 172/77. Procardia ordered. Will continue to monitor bp's and for s/s of severe features. Plt transfusion may be required if < 50,000 or if pt develops signs of bleeding. (5) Thrombocytopenia Code(s): D69.6 - THROMBOCYTOPENIA, UNSPECIFIED Status: Acute Comment: 2/2 Preeclampsia with severe features and s/p csection at 0300 this am. Will continue to monitor. Improved this morning to 84 (was 75 post cs yesterday). (6) Anemia Code(s): D64.9 - ANEMIA, UNSPECIFIED Status: Acute Comment: H/H this morning 9.2/27.6. Asymptomatic. Will continue to monitor. (7) Early Term IUP Status: Acute Comment: 27 yo -->1 presents with severe preeclampsia at 38.3wks and was subsequently induced. She is now s/p csection 2/2 arrest of dilation. (8) Encounter for induction of labor Code(s): Z34.90 - ENCNTR FOR SUPRVSN OF NORMAL , UNSP, UNSP TRIMESTER Status: Acute Comment: see above. (9) Arrest of dilation, delivered, current hospitalization Code(s): O62.1 - SECONDARY UTERINE INERTIA Status: Acute Comment: Arrest of dilation overnight. Taken for csection, now s/p LTCS @ 0300 on 09/01 (10) Morbid obesity Code(s): E66.01 - MORBID (SEVERE) OBESITY DUE TO EXCESS CALORIES Status: Acute (11) Hypotension Status: Resolved
[2017-09-02] MEDS: Clindamycin/D5W 900 MG in Premix Bag 1 BAG IVPB SCH ×3 (09:36→18:06)
[2017-09-02] MEDS: Oseltamivir 75 MG CAP PO SCH ×2 (09:55→21:43)
[2017-09-02] MEDS ORDERED: Ampicillin 2 GM, Syringe 5.2 ML in Sterile Water 14.8 ML SLOW IVP SCH (12:00)
[2017-09-02 12:11] LABS: ALT (SGPT) 8 U/L (8-55); AST (SGOT) 24 U/L (5-34)
[2017-09-02] MEDS: Ampicillin 2 GM, Syringe 5.2 ML in Sterile Water 14.8 ML SLOW IVP SCH ×2 (16:00→21:43)
[2017-09-02] MEDS ORDERED: HYDROcodone/Acetaminophen 5/325 mg Tablet PO PRN (17:52)
[2017-09-02] MEDS: Ferrous Sulfate 325 MG TAB PO SCH (17:59)
[2017-09-03] MEDS ORDERED: HYDROcodone/Acetaminophen 5/325 mg Tablet PO PRN ×4 (02:00→06:00)
[2017-09-03] MEDS: Clindamycin/D5W 900 MG in Premix Bag 1 BAG IVPB SCH ×2 (02:09→09:48)
[2017-09-03] MEDS: Ampicillin 2 GM, Syringe 5.2 ML in Sterile Water 14.8 ML SLOW IVP SCH ×2 (03:01→09:19)
[2017-09-03] MEDS: Gentamicin Sulfate 410 MG in Sodium Chloride 0.9% 100 ML IVPB SCH (05:25)
[2017-09-03 07:02] LABS: Anion Gap 15 mmol/L (10-20); BUN (Urea Nitrogen) 7 mg/dL (7.0-18.7); Calc. Creatinine Clearance 219 mL/min (70-130); Calcium 7.9 mg/dL (7.8-10.44); Carbon Dioxide 22 mmol/L (22-29); Chloride 101 mmol/L (98-107); Estimated GFR-MDRD 87; Glucose 98 mg/dL (70-105); Potassium 3.6 mmol/L (3.5-5.1); Sodium 134 mmol/L (136-145)
[2017-09-03] MEDS: Prenatal Vitamin 1 TAB PO SCH (08:18)
[2017-09-03] MEDS: Docusate Calcium (SURFAK) 240 MG CAP PO SCH ×2 (08:18→21:27)
[2017-09-03] MEDS: Ferrous Sulfate 325 MG TAB PO SCH ×2 (08:18→17:47)
[2017-09-03] MEDS: NIFEdipine XL 30 MG TAB PO SCH (08:18)
--- NOTE | 2017-09-03 08:23 | PDOC.PP ---
Post Progress Note Post Day #: 2 Subjective: 27 yo s/p csection on 09/01. Now post op day 2. Afebrile overnight. Blood pressures controlled overnight. Complaining of abdominal pain with coughing. Ambulating to restroom. Tolerating a normal diet. Passing flatus. Adequately urinating. C/o dry nipples from . PO intake tolerated: yes Flatus: yes Ambulation: yes Vital Signs (12 hours) Temp Pulse Resp BP Pulse Ox 09/03/17 08:18 99 09/03/17 08:00 98.9 F 99 20 140/90 98 09/03/17 00:10 98.9 F 107 H 22 H 142/68 H 94 L Weight Weight 130.635 kg - Physical Examination General: NAD Cardiovascular: no m/r/g, RRR Deviation from normal: left-sided course breath sounds, no crackles Abdominal: + bowel sounds, lochia, appropriately TTP Fundus firm & at: 2 cm below the umbilicus Skin: CS incision dry & intact, no rash Neurological: no gross focal deficits Psychiatric: A&Ox3, normal affect Result Diagrams: 09/03/17 08:10 09/03/17 06:13 Additional Labs: Post Labs Blood Type O POSITIVE 08/30/17 17:04 Hep Bs Antigen Non-Reactive S/CO (NonReactive) 08/30/17 17:04 Rubella IgG Antibody 2.43 index (Immune >0.99) 08/30/17 17:04 (1) Chorioamnionitis, delivered, current hospitalization Code(s): O41.1290 - CHORIOAMNIONITIS, UNSP TRIMESTER, NOT APPLICABLE OR UNSP Status: Acute Comment: Currently afebrile for 24 hours. No leukocytosis and appropriately tender on exam. Low clinical suspicion for endometritis. Dc Amp/ Gent/Clinda and will monitor here in the hospital until afebrile for 48 hours post csection. Tylenol prn for fever. (2) Influenza A Code(s): J10.1 - FLU DUE TO OTH IDENT INFLUENZA VIRUS W OTH RESP MANIFEST Status: Acute Comment: Afebrile for 24 hours post . Tamiflu started on 09/01. Continue Tamiflu BID for a total of five days. Continue to provide supportive care to include tylenol IV prn fever. (3) Delivered by section Code(s): O82 - ENCOUNTER FOR DELIVERY WITHOUT INDICATION Status: Acute Comment: Will continue to monitor I/O's, encourage PO intake, and ambulation. Will provide ibuprofen and norco for adequate pain control. Tylenol prn fever. Pt is voiding adequately without a michele. C/o dry nipples from . Provided lanolin ointment. (4) Severe pre-eclampsia Code(s): O14.10 - SEVERE PRE-ECLAMPSIA, UNSPECIFIED TRIMESTER Status: Acute QualifierTitle: Trimester: third trimester Qualified Code(s): O14.13 - Severe pre-eclampsia, third trimester Comment: BP's controlled overnight. Procardia 30mg daily started yesterday. Will continue today. Will continue to monitor bp's. (5) Thrombocytopenia Code(s): D69.6 - THROMBOCYTOPENIA, UNSPECIFIED Status: Acute Comment: Improved. 2/2 Preeclampsia with severe features. Will monitor. (6) Anemia Code(s): D64.9 - ANEMIA, UNSPECIFIED Status: Acute Comment: H/H this morning 8.9/25.9. Asymptomatic. Will continue to monitor. (7) Early Term IUP Status: Acute Comment: 27 yo -->1 presents with severe preeclampsia at 38.3wks and was subsequently induced. She is now s/p csection, 2/2 arrest of dilation. Post op day 2. (8) Morbid obesity Code(s): E66.01 - MORBID (SEVERE) OBESITY DUE TO EXCESS CALORIES Status: Acute Comment: Counciled on diet and exercise. <Chelly Sotelo - Last Filed: 09/03/17 10:16> Vital Signs (12 hours) Temp Pulse Resp BP Pulse Ox 09/03/17 08:18 99 09/03/17 08:00 98.9 F 99 20 140/90 98 Weight Weight 288 lb Result Diagrams: 09/03/17 08:10 09/03/17 06:13 Additional Labs: Post Labs Blood Type O POSITIVE 08/30/17 17:04 Hep Bs Antigen Non-Reactive S/CO (NonReactive) 08/30/17 17:04 Rubella IgG Antibody 2.43 index (Immune >0.99) 08/30/17 17:04 <Lily Patel - Last Filed: 09/03/17 13:07> Attending Addendum - Attending Addendum I personally evaluated the patient and discussed the management with Dr. Sotelo. I agree with the History, Examination, Assessment and Plan documented above. <Lily Patel - Last Filed: 09/03/17 13:07>
[2017-09-03 09:02] LABS: #Lymphocytes 2.1 thou/uL (1.20-3.40); #Monocytes 0.6 thou/uL (0.11-0.59); #Neutrophils 7.3 thou/uL (1.40-6.50); %Eosinophils 0.2 % (0.0-10.0); %Lymphocytes 21.2 % (21.0-51.0); %Monocytes 5.5 % (0.0-10.0); %Neutrophils 73.1 % (42.0-75.0); Hemoglobin 8.9 g/dL (12.0-16.0); Mean Corpuscular HGB CONC 34.5 g/dL (32.0-36.0); Mean Corpuscular Hemoglobin 33.6 pg (27.0-31.0); Mean Corpuscular Volume 97.3 fl (81.0-99.0); Mean Platelet Volume 11.4 fL (7.4-10.4); Platelet Count 100 thou/uL (130-400); RBC Distribution Width 11.9 % (11.5-14.5); Red Blood Cell (RBC) Count 2.66 mill/uL (4.20-5.40)
[2017-09-03] MEDS: [UNRECOGNIZED DRUG - REMARK] FS SCH (09:13)
[2017-09-03] MEDS: Oseltamivir 75 MG CAP PO SCH ×2 (09:46→21:27)
[2017-09-03] MEDS: Lanolin Ointment 7 GM TUBE TOP SCH ×4 (13:06→21:27)
[2017-09-03] MEDS: HYDROcodone/Acetaminophen 5/325 mg Tablet PO PRN ×2 (14:32→21:30)
[2017-09-04] MEDS: Lanolin Ointment 7 GM TUBE TOP SCH ×5 (03:36→16:27)
--- NOTE | 2017-09-04 07:58 | PDOC.PP ---
Post Progress Note Post Day #: 3 Subjective: 27 yo s/p csection on 09/01. Now post op day 3. Afebrile overnight. Blood pressures controlled overnight. Ambulating to restroom. Tolerating a normal diet. Passing flatus. Adequately urinating. PO intake tolerated: yes Flatus: yes Ambulation: yes Vital Signs (12 hours) Temp Pulse Resp BP Pulse Ox 09/03/17 20:00 98.0 F 108 H 18 133/92 H 97 Weight Weight 130.635 kg - Physical Examination General: NAD Cardiovascular: no m/r/g, RRR Respiratory: clear to auscultation bilaterally Abdominal: lochia (minimal), appropriately TTP Skin: CS incision dry & intact Neurological: no gross focal deficits Psychiatric: A&Ox3, normal affect Result Diagrams: 09/03/17 08:10 09/03/17 06:13 Additional Labs: Post Labs Blood Type O POSITIVE 08/30/17 17:04 Hep Bs Antigen Non-Reactive S/CO (NonReactive) 08/30/17 17:04 Rubella IgG Antibody 2.43 index (Immune >0.99) 08/30/17 17:04 (1) Chorioamnionitis, delivered, current hospitalization Code(s): O41.1290 - CHORIOAMNIONITIS, UNSP TRIMESTER, NOT APPLICABLE OR UNSP Status: Acute Comment: Currently afebrile for 48 hours. Without s/s of infection. (2) Influenza A Code(s): J10.1 - FLU DUE TO OTH IDENT INFLUENZA VIRUS W OTH RESP MANIFEST Status: Acute Comment: Afebrile for 48 hours post . Tamiflu started on 09/01. Continue Tamiflu BID for a total of five days. (3) Delivered by section Code(s): O82 - ENCOUNTER FOR DELIVERY WITHOUT INDICATION Status: Acute Comment: Pain well controlled. Voiding, stooling, ambulating, and tolerating a normal diet. Plan for discharge today. (4) Severe pre-eclampsia Code(s): O14.10 - SEVERE PRE-ECLAMPSIA, UNSPECIFIED TRIMESTER Status: Acute Qualifiers: Trimester: third trimester Qualified Code(s): O14.13 - Severe pre-eclampsia , third trimester Comment: BP's controlled on procardia 30mg daily. Will discharge on procardia 30mg daily for one week. Recommend follow-up in one week for bp check and isaiah removal. (5) Thrombocytopenia Code(s): D69.6 - THROMBOCYTOPENIA, UNSPECIFIED Status: Acute Comment: Improved. 2/2 Preeclampsia with severe features. (6) Anemia Code(s): D64.9 - ANEMIA, UNSPECIFIED Status: Acute Comment: H/H this morning 8.9/25.9. Asymptomatic. Will continue to monitor. Recommend iron PO daily upon discharge. (7) Early Term IUP Status: Acute Comment: 27 yo -->1 presents with severe preeclampsia at 38.3wks and was subsequently induced. She is now s/p csection, 2/2 arrest of dilation. Post op day 3. (8) Morbid obesity Code(s): E66.01 - MORBID (SEVERE) OBESITY DUE TO EXCESS CALORIES Status: Acute Comment: Counciled on diet and exercise.
[2017-09-04 08:07] VITALS: BP 133/80; TEMP 99.1
[2017-09-04] MEDS: [UNRECOGNIZED DRUG - REMARK] FS SCH (09:16)
[2017-09-04] MEDS: NIFEdipine XL 30 MG TAB PO SCH (09:19)
[2017-09-04] MEDS: Ferrous Sulfate 325 MG TAB PO SCH (09:19)
[2017-09-04] MEDS: Prenatal Vitamin 1 TAB PO SCH (09:20)
[2017-09-04] MEDS: Oseltamivir 75 MG CAP PO SCH (09:20)
[2017-09-04] MEDS: Docusate Calcium (SURFAK) 240 MG CAP PO SCH (09:20)
[2017-09-04] MEDS: HYDROcodone/Acetaminophen 5/325 mg Tablet PO PRN (16:25)
== END 2017-09-04 17:33 | disposition home or self-care (01) | DRG 765 ==
LOC: L&D/OP 15:54 → L&D 18:36 → 3SE 09-02 06:01
PROVIDERS: ADMIT Obstetrics & Gynecology; ATTEND Obstetrics & Gynecology
PROC: 3E0P7VZ Introduction of Hormone into Female Reproductive, Via Natural or Artificial Opening (ICD-10-PCS; 2017-08-30)
PROC: 10H07YZ Insertion of Other Device into Products of Conception, Via Natural or Artificial Opening (ICD-10-PCS; 2017-08-31)
PROC: 3E033VJ Introduction of Other Hormone into Peripheral Vein, Percutaneous Approach (ICD-10-PCS; 2017-08-31)
PROC: 10D00Z1 Extraction of Products of Conception, Low, Open Approach (ICD-10-PCS; principal; 2017-09-01)
DX: O13.4 Gestational [pregnancy-induced] hypertension without significant proteinuria, complicating childbirth (principal); O41.1230 Chorioamnionitis, third trimester, not applicable or unspecified; O26.53 Maternal hypotension syndrome, third trimester; O99.12 Other diseases of the blood and blood-forming organs and certain disorders involving the immune mechanism complicating childbirth; O99.214 Obesity complicating childbirth; Z37.0 Single live birth; Z3A.38 38 weeks gestation of pregnancy; O76 Abnormality in fetal heart rate and rhythm complicating labor and delivery; O62.1 Secondary uterine inertia; O14.14 Severe pre-eclampsia complicating childbirth; J10.1 Influenza due to other identified influenza virus with other respiratory manifestations; D64.9 Anemia, unspecified
CPT/HCPCS: 36415; 51702; 71010; 76815; 80048; 80053; 80306; 82570; 82805; 83010; 83615; 84156; 84450; 84460; 85025; 85027; 85060; 86762; 86780; 86850; 86900; 86901; 87040; 87081; 87340; 87804; 99285; A4216; J0131; J0290; J0670; J1580; J2001; J2175; J2274; J2405; J2590; J3010; J3475; J3490; J7050; J7120; S0020

== ENCOUNTER 2017-12-01 08:44 | Observation (INO) | payer OTHER, SELFPAY ==
[2017-12-01 09:28] LABS: Bilirubin Large (Negative); Blood, Urine Large (Negative); Clarity CLOUDY (Clear); Glucose, Urine (Dipstick) Negative (Negative); Leukocyte Small (Negative); Nitrite Negative (Negative); Protein, Urine (Dipstick) Negative (Neg-Trace); Specific Gravity, Urine 1.023 (1.002-1.036)
[2017-12-01 09:29] LABS: Bacteria/HPF None Seen HPF (None Seen)
[2017-12-01 09:30] LABS: Pathc Cast-AUWi Flag 2.61 (0-2.49); Yeast-AUWi Flag 54.8 (0-25.0)
[2017-12-01 09:38] LABS: Hyaline Casts/LPF 0-3 HYALINE CAST LPF (0-3 Hyaline); Yeast-All Forms None Seen HPF (None Seen)
[2017-12-01 09:39] LABS: Manual Microscopic Reviewed? No Path Casts Seen
[2017-12-01 09:42] LABS: #Basophils 0.1 thou/uL (0.0-0.2); #Eosinphils 0.1 thou/uL (0.0-0.7); #Lymphocytes 2.6 thou/uL (1.20-3.40); #Monocytes 0.3 thou/uL (0.11-0.59); #Neutrophils 4.1 thou/uL (1.40-6.50); %Basophils 1.2 % (0.0-1.0); %Eosinophils 1.3 % (0.0-10.0); %Lymphocytes 35.8 % (21.0-51.0); %Monocytes 4.7 % (0.0-10.0); Hemoglobin 13.7 g/dL (12.0-16.0); Mean Corpuscular Hemoglobin 29.7 pg (27.0-31.0); Mean Corpuscular Volume 87.3 fl (81.0-99.0); Mean Platelet Volume 10.5 fL (7.4-10.4); Platelet Count 220 thou/uL (130-400); RBC Distribution Width 12.4 % (11.5-14.5); Red Blood Cell (RBC) Count 4.62 mill/uL (4.20-5.40); White Blood Cell (WBC) Count 7.2 thou/uL (4.8-10.8)
[2017-12-01] MEDS ORDERED: Lidocaine Viscous Sol 2% 15 ml UD Cup ONE (09:52)
[2017-12-01] MEDS ORDERED: Mag-Al 1200 mg/1200 mg/30 ML UDCUP ONE (09:53)
[2017-12-01] MEDS ORDERED: Ondansetron HCl/PF 4 MG/2 ML Vial ONE (09:53)
[2017-12-01] MEDS ORDERED: Pantoprazole 40 MG VIAL ONE (09:53)
[2017-12-01 10:05] LABS: BHCG - Serum Negative (NEGATIVE); Pregs Control Background? CLEAR/WHITE (CLR/WHITE); Pregs Control Bar Appear? YES (CONTROL BAR)
[2017-12-01 10:11] LABS: ALT (SGPT) 547 U/L (8-55); AST (SGOT) 358 U/L (5-34); Albumin 4.2 g/dL (3.5-5.0); Alkaline Phosphatase 238 U/L (40-150); Anion Gap 13 mmol/L (10-20); BUN (Urea Nitrogen) 11 mg/dL (7.0-18.7); Bilirubin, Total 3.6 mg/dL (0.2-1.2); Calc. Creatinine Clearance 0 mL/min (70-130); Calcium 9.7 mg/dL (7.8-10.44); Carbon Dioxide 23 mmol/L (22-29); Chloride 104 mmol/L (98-107); Estimated GFR-MDRD 71; Globulin 3.9 g/dL (2.4-3.5); Glucose 100 mg/dL (70-105); Lipase 18 U/L (8-78); Potassium 4.4 mmol/L (3.5-5.1); Protein, Total 8.1 g/dL (6.0-8.3); Sodium 136 mmol/L (136-145)
--- NOTE | 2017-12-01 10:39 | ULT ---
RIGHT UPPER QUADRANT ULTRASOUND: Date: 12/01/17 HISTORY: Right upper quadrant and epigastric pain. FINDINGS: The liver demonstrates increased echogenicity consistent with fatty infiltration. No focal mass or in trahepatic ductal dilatation is seen. Multiple shadowing mobile gallstones are present without gallbl adder wall thickening or pericholecystic fluid. The common duct measures 1.0 cm in diameter. Right ki dney is unremarkable. The pancreas is partially visualized. The visualized portions of the pancreas a re unremarkable. IMPRESSION: 1. Cholelithiasis. 2. Dilated common bile duct. 3. Fatty liver. POS: [facility]
[2017-12-01] MEDS ORDERED: Acetaminophen/Codeine 30-300mg Tablet ONE (12:33)
[2017-12-01] MEDS ORDERED: Morphine 4 MG/ML VIAL SLOW IVP PRN ×3 (13:17→19:41)
[2017-12-01] MEDS ORDERED: Sodium Chloride 0.9% 1,000 ML IV SCH (13:30)
[2017-12-01] MEDS ORDERED: Ondansetron HCl/PF 4 MG/2 ML Vial IVP PRN ×2 (14:22→19:41)
[2017-12-01] MEDS ORDERED: Acetaminophen 1,000 MG in Premix Bag 1 BAG IVPB PRN ×2 (14:22→19:41)
[2017-12-01] MEDS ORDERED: Lidocaine 1% PF 5 ML VIAL ONE (14:35)
[2017-12-01] MEDS ORDERED: Propofol 200 MG/20 ML VIAL ONE (14:35)
--- NOTE | 2017-12-01 14:51 | HP ---
DATE OF ADMISSION: 12/01/2017 CHIEF COMPLAINT: Upper abdominal pain. HISTORY OF PRESENT ILLNESS: This is a 27-year-old female, who presents with severe sharp pain in her epigastric area; it does radiate some to her right side, but not to the left, associated with nausea , no vomiting, no fevers or chills. He never had this pain before. No previous known history of jau ndice, gallstones, pancreatitis, found to have elevated liver function tests, elevated bilirubin, and a dilated common bile duct with gallstones on ultrasound. PAST MEDICAL HISTORY: She denies. PAST SURGICAL HISTORY: Negative. MEDICINES: None. ALLERGIES: No known drug allergies. SOCIAL HISTORY: No smoking, alcohol, or other drugs. REVIEW OF SYSTEMS: Ten-system review of system is otherwise negative unless described above. PHYSICAL EXAMINATION: VITAL SIGNS: Pulse is 82, blood pressure is 130/78, respirations are 12. She is afebrile. HEENT: Sclerae icteric. Oropharynx clear. NECK: No lymphadenopathy. CHEST: Clear. HEART: Regular rate and rhythm. ABDOMEN: Soft, tender epigastric, tender right upper quadrant. No guarding or rebound. No abdomina l or inguinal hernias. EXTREMITIES: No ischemia or edema to extremities. LABORATORY DATA: White blood cell count is 7, hemoglobin 13, platelet count is 220. Sodium 136, pot assium 4.4, creatinine is 0.94. Bilirubin 3.6. AST and ALT are 358 and 547, lipase is 18. Ultrasound: Gallstones, dilated common bile duct. ASSESSMENT: Acute cholecystitis with elevated liver test, potentially choledocholithiasis. PLAN: Laparoscopic cholecystectomy with intraoperative cholangiogram. She will likely need postop E [facility]. Risks, benefits, alternatives discussed. She gives consent. We will do this today.
[2017-12-01] MEDS ORDERED: Indomethacin 50 MG SUPP PR SCH (15:00)
[2017-12-01] MEDS ORDERED: Levofloxacin 500 mg/D5W 100 ml Premix Bag ONE (15:29)
[2017-12-01] MEDS ORDERED: Iothalamate Meglumine 60% 50 ML VIAL FS ONE (15:42)
[2017-12-01 15:43] VITALS: BMI 43.7
[2017-12-01] MEDS ORDERED: Fentanyl 100 MCG/2 ML VIAL ONE (16:35)
[2017-12-01] MEDS ORDERED: Dextrose 5% in Water 1,000 ML IV PRN (19:41)
[2017-12-01] MEDS ORDERED: Dextrose 50% Abboject 50 ML SYRINGE SLOW IVP PRN (19:41)
[2017-12-01] MEDS ORDERED: Mag-Al 1200 mg/1200 mg/30 ML UDCUP PO PRN (19:41)
[2017-12-01] MEDS ORDERED: Promethazine HCl 25 MG/ML VIAL IM PRN (19:41)
[2017-12-01] MEDS ORDERED: hydrALAZINE 20 MG/ML VIAL SLOW IVP PRN (19:41)
[2017-12-01] MEDS ORDERED: Calcium Carbonate 500 MG ChewTAB PO PRN (19:41)
--- NOTE | 2017-12-01 19:42 | CON ---
DATE PF CONSULTATION: 12/01/2017 REASON FOR CONSULTATION: Suspected choledocholithiasis. HISTORY OF PRESENT ILLNESS: Ms. Kay is a 27-year-old, who had a baby in September. Since then, she has intermittently having epigastric and upper quadrant pain, often come and go, lasting an hour at a time, often associated with meals. This bout began on , which was yesterday in the [facility] and has not relented. She ultimately came into the emergency room where she was noted to be icte balwinder. She has had no fever or chills. In the emergency room, she was given Protonix and Zofran and a liter of normal saline. The white count was 7.2, hemoglobin 13.7, platelet count 220. Chemistry is noted for a bilirubin of 3.6, AST and ALT of 358 and 547, alkaline phosphatase is 238, lipase is 18. Her test was negative. Urinalysis was negative except for some blood in bilirubin as wel l as leukocyte esterase. She notes she is on her menstrual cycle presently. [facility] upper [facility] showed gallstones and some fatty liver. Common bile duct was 1 cm in size. There was no overt gallbladder wall thickening or pericholecystic fluid. She was admitted by Dr. Wilson gutierrez for General Surgery. Presently, the patient states she is having ongoing discomfort. She abdias es fever or chills. She does not feel all that well. PAST MEDICAL HISTORY: Preeclampsia with her last ; section; orthopedic surgery, le leg. ALLERGIES: None. PHYSICAL EXAMINATION: VITAL SIGNS: Blood pressure 144/98, pulse 72, respirations 18, temperature 98. LUNGS: Clear. CARDIOVASCULAR: Heart regular without gallops, rubs or murmurs. ABDOMEN: Soft and nontender without palpable hepatosplenomegaly. There is no rebound. There is no guarding. There is some mild tenderness in the right upper quadrant. ABDOMEN: Protuberant. LABORATORY DATA: As above. Her hemoglobin is increased from 8.9 at delivery to 13.7. Her liver fun ction tests were normal on 09/02/2017 with an AST and ALT of 24 and 8, now they are 358 and 547 with a bilirubin of 3.7, platelets are 220. ASSESSMENT: 1. Biliary colic with gallstones on ultrasound and a dilated common bile duct, elevated liver enzyme s consistent with choledocholithiasis. 2. History of preeclampsia with the most recent . She has no signs of HELLP syndrome with normal platelets. Her liver function tests were normal throughout . She has had no issues with blood pressure now. PLAN: We would continue IV fluids as previously ordered. We will proceed with ERCP today for choled ocholithiasis, as she has ongoing pain to reduce risk of developing pancreatitis or cholangitis. I s uspect that her ongoing pain, she has retained stone in her common duct. She can have a laparoscopic cholecystectomy tomorrow if all goes well and she understands this. I have explained the risks, virgilio efits, also complications of procedure as well as timing in relationship to her cholecystectomy. I h taylore talked to Dr. Burris, her surgeon, and all agree with the plan. I will proceed today.
[2017-12-01] MEDS: D5 1/2 NS w/20 mEq KCL 1,000 ML IV SCH (19:54)
[2017-12-01] MEDS: Famotidine 20 MG TAB PO SCH (20:01)
[2017-12-01] MEDS: Famotidine/PF 20 mg/2ml Vial SLOW IVP SCH (21:24)
--- NOTE | 2017-12-01 21:39 | OP ---
PREPROCEDURE DIAGNOSES: 1. Biliary colic. 2. Ongoing pain for 2 days. 3. Elevated liver enzymes. 4. A 1 cm common bile duct. POSTPROCEDURE DIAGNOSIS: Choledocholithiasis. PROCEDURES PERFORMED: Endoscopic retrograde cholangiopancreatography, removal of common bile duct st one. ANESTHESIA: General endotracheal anesthesia, Levaquin 500 mg IV, suppository and Indocin 100 mg. PROCEDURE IN DETAIL: After the patient was informed of the risks, benefits, possible complications o f endoscopy including perforation, bleeding, reactions to medication and aspiration, the risk of ERCP including pancreatitis, informed consent was obtained. The patient was brought to the endoscopy [place] where she was sedated in gradual fashion. Once she was comfortable, she was intubated and then a bite block was placed in the incisural orifice. She was placed in the prone position on the fluorosc opy table. A senior informatica developer film was obtained. The side-viewing duodenoscope was advanced through the esopha olinda, stomach and the second and third portion of the duodenum and slowly removed. The ampulla was br ought into view. It was edematous with submucosal edema and some eversion. There was scant bile not ed coming from it. Free cannulation was obtained with the assistance of a guidewire. Initially, shayla dewire was placed once in the pancreatic duct, but no injection contract was performed there. We wer e able to redirect to the common bile duct. Guidewire was placed up and once we had access, now we w ere able to straighten the catheter a little bit and then advance it up. Cholangiogram revealed fill ing defect in the distal duct. The patient was grounded and sphincterotomy was performed over the gu idewire. With the sphincterotomy, the stone popped out of the distal duct. Occlusion cholangiogram revealed no further filling defects in the proximal biliary tree. The common duct was then swept 2 t imes. Then another occlusion cholangiogram was performed showing no filling defects and spontaneous drainage of contrast. The scope was removed. The patient tolerated the procedure well with no compl ications. RECOMMENDATIONS: Laparoscopic cholecystectomy tomorrow.
--- NOTE | 2017-12-01 22:53 | RAD ---
FOUR SUBMITTED IMAGES FROM ERCP: INDICATION: ERCP for choledocholithiasis. COMPARISON: Right upper quadrant ultrasound dated 12/01/17. FINDINGS: The first submitted images demonstrate the ERCP camera at the level of the second portion of the duod enum. Subsequent image demonstrates placement of a catheter with retrograde opacification in portions of the common bile duct and common hepatic duct. There is no visible filling of the cystic duct or gallbladder. There is a small filling defect seen at the level of the ampulla suspicious for the cat heter balloon. Subsequent image demonstrates placement of a wire within the distal common bile duct. The final submitted image demonstrates placement of a catheter and balloon within the common hepati c duct with the wire projecting in the region of the left hepatic duct. No visible filling defect is evident. There was no retrograde opacification of the cystic duct. No visible filling defect to cruz ggest choledocholithiasis evident. IMPRESSION: 1. No evidence for choledocholithiasis. 2. No contrast filling the cystic duct. There are no cholecystectomy clips present. Findings may r eflect changes of acute cholecystitis. HIDA scan may be helpful for additional evaluation. POS: LAI
[2017-12-02] MEDS: D5 1/2 NS w/20 mEq KCL 1,000 ML IV SCH (04:10)
[2017-12-02 06:04] LABS: ALT (SGPT) 326 U/L (8-55); AST (SGOT) 145 U/L (5-34); Albumin 3.5 g/dL (3.5-5.0); Alkaline Phosphatase 198 U/L (40-150); Anion Gap 10 mmol/L (10-20); BUN (Urea Nitrogen) 8 mg/dL (7.0-18.7); Bilirubin, Total 1.5 mg/dL (0.2-1.2); Calc. Creatinine Clearance 151 mL/min (70-130); Calcium 8.9 mg/dL (7.8-10.44); Carbon Dioxide 25 mmol/L (22-29); Chloride 108 mmol/L (98-107); Estimated GFR-MDRD 68; Globulin 3.3 g/dL (2.4-3.5); Glucose 88 mg/dL (70-105); Lipase 9 U/L (8-78); Potassium 4.2 mmol/L (3.5-5.1); Protein, Total 6.8 g/dL (6.0-8.3); Sodium 139 mmol/L (136-145)
[2017-12-02 06:16] LABS: Band 3 % (5-11); Eosinophils 1 % (0-10); Hemoglobin 12.6 g/dL (12.0-16.0); Lymphocytes 55 % (21-51); MDiff Complete? YES; Mean Corpuscular HGB CONC 32.9 g/dL (32.0-36.0); Mean Corpuscular Hemoglobin 29.9 pg (27.0-31.0); Mean Corpuscular Volume 90.8 fl (81.0-99.0); Mean Platelet Volume 10.8 fL (7.4-10.4); Monocytes 7 % (0-10); Neutrophil 29 % (42-75); Platelet Count 187 thou/uL (130-400); RBC Distribution Width 12.5 % (11.5-14.5); Reactive Lymphocytes 3 % (0-10); Red Blood Cell (RBC) Count 4.21 mill/uL (4.20-5.40); White Blood Cell (WBC) Count 5.7 thou/uL (4.8-10.8)
[2017-12-02] MEDS ORDERED: Fentanyl 100 MCG/2 ML VIAL ONE (07:15)
[2017-12-02] MEDS ORDERED: HYDROmorphone 0.5 MG/0.5 ML SYRINGE ONE (07:15)
[2017-12-02 07:40] VITALS: BP 111/75; TEMP 98.3
[2017-12-02] MEDS ORDERED: CEFAZOLIN/Water 2 GM/20 ML SYRINGE ONE (07:51)
[2017-12-02] MEDS ORDERED: Bupivacaine/Epinephrine 0.25% 30 ML VIAL ONE (08:44)
--- NOTE | 2017-12-02 08:59 | OP ---
DATE OF PROCEDURE: 12/02/2017 PREOPERATIVE DIAGNOSIS: Acute cholecystitis. POSTOPERATIVE DIAGNOSIS: Acute cholecystitis. PROCEDURE: Laparoscopic cholecystectomy. SURGEON: Hari Burris M.D. ANESTHESIA: General. ESTIMATED BLOOD LOSS: Minimal. COMPLICATIONS: None. SPECIMEN: Gallbladder. FINDINGS: Cholecystitis. PROCEDURE IN DETAIL: The patient was taken to the Operating Room and laid supine on the Operating Flor m table. After general anesthetic was obtained, the abdomen was prepped and draped in a sterile fashi on. A curved incision was made below the umbilicus. Cautery was used to dissect down to the umbilical fascia. Umbilical fascia was incised and held up using a Amor. The abdominal cavity was entered us ing a Bernarda clamp. Holding stitch of Vicryl was placed on each side of the fascia. Sullivan trocar was placed. High-flow pneumoperitoneum was obtained. An upper midline 5-mm port and two right upper quadr ant 5-mm ports were placed under direct camera visualization. The gallbladder was retracted from the gallbladder fossa. The peritoneum of the gallbladder was opened anteriorly and posteriorly. The criti jimenez view triangle was seen showing only the cystic duct and cystic artery branching from medial to la teral. There were no other branching structures. Two clips were placed proximally on the cystic duct and one laterally. It was cut using laparoscopic scissors. The cystic artery was taken in the same wa y. Electrocautery was then used to dissect the gallbladder out of the gallbladder fossa. The gallblad aga was placed in an Endo catch bag and brought out through the Sullivan. There was no bleeding or bile in the liver bed. The cystic duct stump and cystic artery stump were intact without evidence of extr avasation or bleeding. All port sites were infiltrated using local anesthesia. All ports were removed under camera visualization. Pneumoperitoneum was let down. The Vicryl was used to close the fascial defect below the umbilicus. All incisions were irrigated and closed using 4-0 Monocryl and DermaBond. The patient was en route to Recovery in stable condition. All instrument counts, needle counts and l ap counts were correct.
[2017-12-02] MEDS ORDERED: FLU VACC QS2017-18 36 mo. & older 0.5 ML SYRINGE IM ONE (09:00)
[2017-12-02] MEDS ORDERED: Promethazine HCl 25 MG/ML VIAL SLOW IVP PRN (09:09)
[2017-12-02] MEDS ORDERED: HYDROmorphone 2 MG/ML VIAL SLOW IVP PRN (09:09)
[2017-12-02] MEDS ORDERED: Ondansetron HCl/PF 4 MG/2 ML Vial IVP PRN ×2 (09:09→10:07)
[2017-12-02] MEDS ORDERED: Promethazine HCl 25 MG/ML VIAL IM PRN ×2 (09:09→10:07)
[2017-12-02] MEDS ORDERED: Calcium Carbonate 500 MG ChewTAB PO PRN (10:07)
[2017-12-02] MEDS ORDERED: Dextrose 50% Abboject 50 ML SYRINGE SLOW IVP PRN (10:07)
[2017-12-02] MEDS ORDERED: Mag-Al 1200 mg/1200 mg/30 ML UDCUP PO PRN (10:07)
[2017-12-02] MEDS ORDERED: HYDROcodone/Acetaminophen 10/325 mg Tablet PO PRN ×2 (10:07)
[2017-12-02] MEDS ORDERED: Dextrose 5% in Water 1,000 ML IV PRN (10:07)
[2017-12-02] MEDS ORDERED: Morphine 4 MG/ML Carpuject SLOW IVP PRN (10:07)
[2017-12-02] MEDS ORDERED: hydrALAZINE 20 MG/ML VIAL SLOW IVP PRN (10:07)
[2017-12-02] MEDS ORDERED: D5 1/2 NS w/20 mEq KCL 1,000 ML IV SCH (10:15)
[2017-12-02] MEDS ORDERED: Morphine 4 MG/ML VIAL IV PRN ×2 (10:20→10:21)
[2017-12-02] MEDS: Famotidine/PF 20 mg/2ml Vial SLOW IVP SCH (10:27)
[2017-12-02] MEDS: Famotidine 20 MG TAB PO SCH (10:27)
--- NOTE | 2017-12-02 11:40 | DIS ---
ADMIT DIAGNOSES: Cholecystitis and choledocholithiasis. DISCHARGE DIAGNOSES: Cholecystitis and choledocholithiasis. PROCEDURES: Laparoscopic cholecystectomy by Dr. Burris without complication, ERCP by Dr. Leonora wong stone extraction without complication. CONDITION AT DISCHARGE: Improved. STAFF: Dr. Hari Burris. HOSPITAL COURSE: See hospital chart for details of hospitalization.
[2017-12-02] MEDS ORDERED: Ketorolac Tromethamine 30 MG/ML VIAL ONE (15:01)
[2017-12-02] MEDS ORDERED: Dexamethasone 20 MG/5 ML VIAL ONE (15:01)
[2017-12-02] MEDS ORDERED: Propofol 200 MG/20 ML VIAL ONE (15:01)
[2017-12-02] MEDS ORDERED: Ondansetron HCl/PF 4 MG/2 ML Vial ONE (15:01)
[2017-12-02] MEDS ORDERED: Lidocaine 1% PF 5 ML VIAL ONE (15:01)
[2017-12-02] MEDS ORDERED: Glycopyrrolate 0.2 MG/ML 5 ML SYRINGE ONE (15:01)
[2017-12-02] MEDS ORDERED: Famotidine 20 MG TAB PO SCH (21:00)
[2017-12-02] MEDS ORDERED: Famotidine/PF 20 mg/2ml Vial SLOW IVP SCH (21:00)
== END 2017-12-02 18:46 | disposition home or self-care (01) ==
LOC: ERS 08:44 → SURG A 12:13
PROVIDERS: ADMIT Surgery; ATTEND Surgery
PROC: 0F798ZZ Dilation of Common Bile Duct, Via Natural or Artificial Opening Endoscopic (ICD-10-PCS; principal; 2017-12-01)
PROC: 0FT44ZZ Resection of Gallbladder, Percutaneous Endoscopic Approach (ICD-10-PCS; 2017-12-02)
DX: K80.66 Calculus of gallbladder and bile duct with acute and chronic cholecystitis without obstruction (principal); K76.0 Fatty (change of) liver, not elsewhere classified
CPT/HCPCS: 36415; 74330; 76705; 80053; 81003; 81015; 83690; 84703; 85025; 87077; 87086; 88304; 96361; 96374; 96375; C9113; G0378; J1100; J1170; J1610; J1885; J1956; J2001; J2405; J2704; J3010; Q9961; S0028

== ENCOUNTER 2020-08-14 07:57 | Outpatient (CLI) | payer OTHER, MEDICAID ==
[2020-08-14 16:46] LABS: SARS-CoV-2 MS2 Positive; SARS-CoV-2 N Gene Negative; SARS-CoV-2 S Gene Negative; SARS-CoV-2 by NAA Not Detected (NotDetected); SARS-CoV-2 orf1ab Negative
== END 2020-08-14 07:58 | disposition home or self-care (01) ==
LOC: LABBT 07:57
PROVIDERS: ATTEND Family Medicine
DX: Z20.828 Contact with and (suspected) exposure to other viral communicable diseases (principal)
CPT/HCPCS: 87635; U0003

== ENCOUNTER 2020-08-18 05:50 | Inpatient (IN) | payer MEDICAID, OTHER ==
[2020-08-18] MEDS ORDERED: Promethazine HCl 25 MG/ML VIAL IM PRN ×2 (05:52→09:12)
[2020-08-18] MEDS ORDERED: hydrALAZINE 20 MG/ML VIAL SLOW IVP PRN ×2 (05:52→11:11)
[2020-08-18] MEDS ORDERED: Acetaminophen 500 MG TAB PO PRN (05:52)
[2020-08-18] MEDS ORDERED: Ondansetron PF 4 MG/2 ML Vial IVP PRN ×2 (05:52→09:12)
[2020-08-18] MEDS ORDERED: Famotidine/PF 20 mg/2ml Vial SLOW IVP PRN (05:52)
[2020-08-18] MEDS ORDERED: Bicitra 30 ML UDCUP PO PRN (05:52)
[2020-08-18] MEDS ORDERED: CEFAZOLIN 2 GM in Premix Bag 1 BAG IVPB SCH (06:00)
[2020-08-18] MEDS ORDERED: Lactated Ringer's 1,000 ML IV SCH (06:00)
[2020-08-18] MEDS ORDERED: Morphine PF 10 MG/10 ML VIAL ONE (06:39)
[2020-08-18] MEDS ORDERED: PHENYLEPHRINE-NS 100 MCG/ML 10 ML SYRINGE ONE (06:39)
[2020-08-18] MEDS ORDERED: Oxytocin 10 UNITS/ML VIAL ONE ×2 (06:39→09:05)
[2020-08-18 06:43] VITALS: BMI 49.7
[2020-08-18 06:56] LABS: Mean Corpuscular Hemoglobin 32.7 pg (27.0-31.0); Mean Corpuscular Volume 93.5 fL (78.0-98.0); Mean Platelet Volume 13.5 fL (7.4-10.4); Platelet Count 129 thou/uL (130-400); RBC Distribution Width 11.6 % (11.5-14.5); Red Blood Cell (RBC) Count 3.97 mill/uL (4.20-5.40); White Blood Cell (WBC) Count 9.6 thou/uL (4.8-10.8)
--- NOTE | 2020-08-18 07:11 | PDOC.FPROB ---
FMR OB H&P: HPI - History of Present Illness Chief Complaint: scheduled rLTCS Indentification: 30 yo at 39.2 wga by 22.4 wk sono History of Present Illness: Pt presents for to L&D for scheduled repeat section. She is currently at 39.2 wks gestation. She denies any complaints this morning including vaginal bleeding/discharge, LOF, contractions, abdominal pain, urinary changes, or recent illness. Primary Care Physician: Nadiya FMR OB H&P: Current - Care : 2 Para: 1001 Gestational age: 39.2 Due date: 08/23/2020 Dating Criteria: 22.4 wk sono Total weight gain: 29 pounds Course/Complications: Hypothyroidism dx during Obesity with excessive weight gain - OB Labs Blood type: O RH: positive Antibody Screen: negative HIV: negative RPR: negative HepBsAg: negative Rubella: immune Urine drug screen: not done Gonorrhea: negative Chlamydia: negative Pap Smear: NILM on 04/2020 3 hour GTT: 2h gtt (130, 126, 87) A1c: 5.1% on 05/04/2020 GBS: negative H&H: 13/37.1 on 08/18 Platelets: 129K Additional labs: Hep C neg TSH 1.65 on 06/10/2020 - Anatomy Survey Anatomy survey: dating and anatomy sono at 22.4 wga, normal - Additional Ultrasound Additional: growth U/S on 08/07/2020, [place] 25% FMR OB H&P: History - Past Medical History PMH: Tinea versicolor Obesity GERD Hypothyroidism - OB History OB History: Hx of Pre-E in 1st and delivery - RIDE ATTENDANT History RIDE ATTENDANT History: Pap smear NILM in 04/2020 - Surgical History Sx History: ERCP, cholecystectomy, ORIF of tibia, section 2017 - Social History Social History: Denies tobacco or alcohol use. - Family History Family History: DM in grandmother, otherwise unremarkable FMR OB H&P: Medications - Current Home Medications: Medication Instructions Recorded Confirmed Type Vit No.129/Iron/Folic 1 each PO DAILY-AC 08/30/17 08/18/20 History [ One Daily Tablet] Levothyroxine Sodium 50 mcg PO DAILY 08/18/20 08/18/20 History [Levothyroxine] Allergies/Adverse Reactions: Allergies Allergy/AdvReac Type Severity Reaction Status Date / Time No Known Allergies Allergy Unverified 11/22/19 19:49 FMR OB H&P: ROS - Review of Systems General: denies: fever/chills, fatigue Eyes: denies: vision changes, others ENT: denies: nasal congestion, rhinorrhea Cardiovascular: denies: chest pain, edema Respiratory: denies: cough, congestion, shortness of breath Gastrointestinal: denies: abdominal pain, nausea, vomiting Genitourinary (Female): denies: dysuria, contractions Musculoskeletal: denies: pain, stiffness Neurologic: denies: weakness, headache Integumentary: denies: itching, rash FMR OB H&P: Vital Signs - Maternal Vital signs: BP: 128/73 HR: 98 RR: 18 Temp: 98.3 - Heart Tones Baseline: 150 Variability: moderate Acceleration: present Deceleration: absent Category: category 1 Paxton contractions every: None FMR OB H&P: Physical Exam - Physical Exam General: NAD, awake, alert and oriented HEENT: normocephalic and atraumatic, MMM Heart: RRR, normal S1/S2 General: CTAB, no respiratory distress Abdomen: soft, gravid Musculoskeletal: FROM in all four extremities Skin: no rash, capillary refill <2 seconds Psychiatric: intact recent and remote memory, good judgement and insight, normal mood and affect FMR OB H&P: Results - Labs Lab results: Laboratory Results - last 24 hr 08/18/20 08/18/20 06:32 06:33 WBC 9.6 RBC 3.97 L Hgb 13.0 Hct 37.1 MCV 93.5 MCH 32.7 H MCHC 35.0 RDW 11.6 Plt Count 129 L MPV 13.5 H Crossmatch See Detail FMR OB H&P: A/P Disposition: 39.2 wk - Repeat Section - previous LTCs x1 - ultrasounded prior and head down - again discussed risks, benefits, alternatives - pt consents to proceed Hypothyroidism - + TPO antibodies indicating hashimotos - taking 50mcg levothyroxine daily - Last TSH: 4.63, T4 0.74 Plan: Admit to L&D for section this morning. Expect routine PP course at this time. ELOS >48hr Discussion: Date/Time: 08/18/20710 This H&P was discussed with Dr. Guerin who agree with the above documentation and plan. Signature: Basilio Christianson D.O. - PGY2 Addendum - Attending - Attending Attestation Date/Time: 08/18/20740 I personally evaluated the patient and discussed the management with Dr. Christianson. I agree with the History, Examination, Assessment and Plan documented above with any addition or exceptions noted below. Discussed b/a/a/i of RCD including pain, bleeding, infection, damage to bowel/bl adder/other internal organs, needs for transfusion, reoperation, and prolonged hospitalization. She states she understands and desires to proceed, consent signed.
[2020-08-18 07:30] LABS: HBSAg Index 0.15 S/CO (0-0.99); Hep B Surf Ag Non-Reactive S/CO (NonReactive); Syphilis Antibody Nonreactive (Nonreactive); Syphilis Antibody Index 0.07 S/CO (<1.00 Non-Reactive)
[2020-08-18] MEDS ORDERED: ePHEDrine 50 MG/ML VIAL ONE (07:55)
--- NOTE | 2020-08-18 09:05 | PDOC.EVN ---
Event Note - Event Note Event Note: Called to OR by Dr. Guerin. Asked to review right uterine angle after hysterotomy closure. Area is hemostatic, confirmed again once uterus was replaced into abdomen. Tubal adhesion seen proximate to angle but not bleeding. Abdomen then closed by Dr. Guerin and Resident team.
[2020-08-18] MEDS ORDERED: L&D-Morphine 4 MG/ML VIAL SLOW IVP PRN (09:12)
[2020-08-18] MEDS ORDERED: Promethazine HCl 25 MG SUPP PR PRN (09:12)
[2020-08-18] MEDS ORDERED: Naloxone HCl 0.4 mg/ml Vial IV PRN (09:12)
[2020-08-18] MEDS ORDERED: Ondansetron HCl/PF 4 MG/2 ML Vial IVP PRN (09:12)
[2020-08-18] MEDS ORDERED: diphenhydrAMINE 50 MG/ML VIAL IVP PRN (09:12)
[2020-08-18] MEDS ORDERED: Naloxone HCl 0.4 mg/ml Vial IVP PRN ×2 (09:12)
[2020-08-18] MEDS ORDERED: HYDROmorphone 2 MG/ML VIAL SLOW IVP PRN (09:12)
[2020-08-18] MEDS ORDERED: Meperidine HCl/PF 25 MG/ML VIAL SLOW IVP PRN (09:12)
[2020-08-18] MEDS ORDERED: Communication Order-Pharmacy FS SCH (09:15)
[2020-08-18] MEDS ORDERED: Ketorolac Tromethamine 30 MG/ML VIAL IVP SCH (09:15)
[2020-08-18] MEDS ORDERED: Ketorolac Tromethamine 30 MG/ML VIAL ONE (11:07)
[2020-08-18] MEDS: Ketorolac Tromethamine 30 MG/ML VIAL IVP PRN ×2 (11:09→21:38)
[2020-08-18] MEDS ORDERED: NS / Oxytocin 40 units/1000ml 1,000 ML IV SCH (11:11)
[2020-08-18] MEDS ORDERED: Lanolin Ointment 7 GM TUBE TOP PRN (11:11)
--- NOTE | 2020-08-18 11:56 | PDOC.OPDEL ---
OB Operative/Delivery Note - Additional Findings/Plan Compilations/Other Findings: Date of Procedure: 08/18/2020 Resident Surgeon: Dr. Basilio Christianson Grader Meat Surgeon: Dr. Sherin Sabillon Attending Surgeon: Dr. Chris Guerin Procedure: Repeat low transverse caesarean section Preoperative Diagnosis: 1)Term intrauterine 2)Previous 3)Hypothyroidism 4)Morbid obesity Postoperative Diagnosis: 1)Term intrauterine - TAGA Male 2)Previous , uterine adhesions 3)Hypothyroidism 4)Morbid obesity Anesthesia: spinal Indications: The patient is a 30 year old G2,P1 female at 39.2 weeks gestation who presents for a repeat scheduled . Procedure in Detail: After risks, benefits, and alternatives were explained to the patient, she gave informed consent. Pre-operative antibiotics included Cefazolin 2 gram IV. The patient was taken to the operating room and spinal anesthesia was initiated. She was placed in the supine position with a left tilt and prepped and draped in usual sterile fashion. A Pfannenstiel incision was made with a scalpel and carried down to the level of the fascia which was sharply nicked. The fascial cut was extended bilaterally with Chambers scissors. The inferior and superior edges of the cut fascial edges were elevated with Amor clamps and the underlying rectus muscles were sharply and bluntly dissected free. The recti were divided digitally and retracted manually. The peritoneum was entered bluntly and retracted manually. Bladder blade was placed. Anterior uterine adhesions were identified and were taken down sharply and with electrocautery. A low transverse score was made with the scalpel and the uterus was entered in the midline with the scalpel. Clear fluid was seen. The hysterotomy was extended manually. The was noted to be vertex and was easily delivered by fundal pressure. Mouth and nares were bulb suctioned. Cord clamped and cut and grossly normal male infant was handed to waiting nurse. Cord blood was obtained. Placenta was manually extracted. The uterus was externalized and the endometrium was curetted with a dry lap and two additional piece meal placental components were extracted. The bladder blade was replaced and the uterus was closed with a running locking 1-0 monocryl. Bleeding was noted near the right corner of the hysterotomy and was identified as coming from the right fallopian that was anteriorly adhered. Dr. Garrett came to the OR to inspect the area and offer guidance. By the time of his arrival the area was hemostatic following direct pressure. Following this the entire hysterotomy and surrounding structures were visualized and determined to be hemostatic. The uterus was internalized and the hysterotomy was again noted to be hemostatic. The fascia was closed with a running non-locking 0-PDS suture. The subcutaneous tissue was irrigated and bleeders were addressed with electrocautery before being closed with 3-0 plain gut. The skin was approximated with running 4-0 monocryl subq and a pressure dressing was placed. All counts were correct. The patient tolerated the procedure well and was taken to the recovery room in stable condition. Estimated Blood Loss: 530 ml Complications: None Specimens: Cord blood sent to lab for blood type. Placenta sent to path Findings: Grossly normal male infant with Apgars of 8 and 9. Grossly normal placenta with 3 vessel cord discarded. Drains: Mcdowell to gravity draining clear urine Addendum - Attending - Attending Attestation Date/Time: 08/18/20 1227 I was present and scrubbed for all critical portions. Extensive omental adhesions to uterus and posterior rectus. Good hemostasis not ed after adhesiolysis. Right fallopian tube adhered to anterior uterus, for which I asked Dr. Garrett to take a look at and was hemostatic during exteriorization and when placed back in situ.
[2020-08-18] MEDS: Prenatal Vitamin 1 TAB PO SCH (13:16)
--- NOTE | 2020-08-18 13:28 | PDOC.BPN ---
- Brief Progress Note Encounter Date: 08/18/20 Encounter Time: 13:25 Post Op Eval - Pt doing well, denies any pain, getting feeling and movement back in her lower extremities - Additional 40ml vaginal bleeding - Having itching from spinal - will give benadryl - Planning to breast feed, skin to skin currently - Tolerating PO fluids currently Plan: Routine post op/pp care.
[2020-08-18] MEDS: Docusate Calcium (SURFAK) 240 MG CAP PO SCH (21:37)
[2020-08-19] MEDS: Ketorolac Tromethamine 30 MG/ML VIAL IVP PRN (05:14)
--- NOTE | 2020-08-19 06:06 | PDOC.PP ---
Post Progress Note Post Day #: 1 Subjective: Pain well controlled. Michele taken out recently. Has not ambulated yet. Tolerating foods and voiding normally. Does not feel that she has had much vaginal bleeding since she was seen by me post operatively yesterday. PO intake tolerated: yes Flatus: yes Ambulation: no Vital Signs (12 hours) Temp Pulse Resp BP Pulse Ox 08/19/20 00:15 98.1 F 99 15 118/62 08/18/20 19:52 98.6 F 107 H 16 124/58 L 97 Weight Weight 123.377 kg - Physical Examination General: NAD Cardiovascular: RRR Respiratory: clear to auscultation bilaterally Abdominal: + bowel sounds, no distention, appropriately TTP Skin: CS incision dry & intact, no rash Neurological: no gross focal deficits Psychiatric: A&Ox3, normal affect Result Diagrams: 08/19/20 05:36 Additional Labs: Post Labs Hep Bs Antigen Non-Reactive S/CO (NonReactive) 08/18/20 06:32 Blood Type O POSITIVE 08/18/20 06:33 - Assessment/Plan POD 1 s/p rLTCs at 39.2wks - pain controlled, voiding, tolerating PO - michele removed this morning - pt has yet to ambulate, encouraged to do so today - additional 100ml QBL since operation to total 630ml - morning H&H is pending - breast feeding, breast fed other child until 2.5 yrs - routine post care Hypothyroid - Continue levothyroxine Plan: Routine post care. Pt progressing well. Expect DC tomorrow vs 2 days. Addendum - Attending - Attending Attestation Date/Time: 08/19/20 1731 I personally evaluated the patient and discussed the management with the team. I agree with the History, Examination, Assessment and Plan documented above with any addition or exceptions noted below.
[2020-08-19] MEDS ORDERED: HYDROcodone/Acetaminophen 5/325 mg Tablet PO PRN (06:07)
[2020-08-19 06:16] LABS: Hemoglobin 10.6 g/dL (12.0-16.0); Mean Corpuscular HGB CONC 36.1 g/dL (32.0-36.0); Mean Corpuscular Hemoglobin 34.8 pg (27.0-31.0); Mean Corpuscular Volume 96.3 fL (78.0-98.0); Mean Platelet Volume 13.1 fL (7.4-10.4); Platelet Count 82 thou/uL (130-400); RBC Distribution Width 11.6 % (11.5-14.5); Red Blood Cell (RBC) Count 3.04 mill/uL (4.20-5.40)
[2020-08-19] MEDS: Prenatal Vitamin 1 TAB PO SCH (08:04)
[2020-08-19] MEDS: Docusate Calcium (SURFAK) 240 MG CAP PO SCH ×2 (08:04→21:25)
[2020-08-19] MEDS: HYDROcodone/Acetaminophen 5/325 mg Tablet PO PRN ×2 (08:07→18:32)
[2020-08-19] MEDS ORDERED: Adacel (T-DAP) 0.5 ML SYRINGE IM ONE (09:00)
[2020-08-19] MEDS ORDERED: Non-Formulary Item 1 EACH (Levothyroxine Sodium [Levothyroxine] 50 MCG Capsule) PO SCH (09:00)
[2020-08-19] MEDS: Levothyroxine Sodium 50 MCG TAB PO SCH (09:14)
[2020-08-19] MEDS: Ibuprofen 800 MG TAB PO SCH ×2 (13:37→21:24)
[2020-08-20] MEDS: Ibuprofen 800 MG TAB PO SCH (04:58)
--- NOTE | 2020-08-20 06:11 | PDOC.PP ---
Post Progress Note Post Day #: 2 Subjective: Doing well. Mild-moderate pain - controlled with Rx. Increasing amount of ambulation. Eager for DC today. PO intake tolerated: yes Flatus: yes Ambulation: yes Vital Signs (12 hours) Temp Pulse Resp BP Pulse Ox 08/20/20 04:53 98.4 F 94 16 129/71 08/19/20 23:59 98.5 F 98 16 115/63 08/19/20 19:43 98.0 F 98 16 136/81 97 Weight Weight 123.377 kg - Physical Examination General: NAD Cardiovascular: RRR Respiratory: non-labored breathing Abdominal: no distention, appropriately TTP Skin: CS incision dry & intact Neurological: no gross focal deficits Psychiatric: A&Ox3 Result Diagrams: 08/19/20 05:36 Additional Labs: Post Labs Hep Bs Antigen Non-Reactive S/CO (NonReactive) 08/18/20 06:32 Blood Type O POSITIVE 08/18/20 06:33 - Assessment/Plan POD 1 s/p rLTCs at 39.2wks - pain controlled, voiding, tolerating PO, ambulating - additional 13ml QBL since yesterday, pt reports very minimal lochia - breast feeding - routine post care Hypothyroid - Continue levothyroxine Plan: Routine post care. Pt progressing well. Plan for DC likely today, if not tomorrow. Addendum - Attending - Attending Attestation Date/Time: 08/20/20 0932 I personally evaluated the patient and discussed the management with the team. I agree with the History, Examination, Assessment and Plan documented above with any addition or exceptions noted below. Declines opioid rx. Plan for d/c today. Incision c/d/i s e/e.
[2020-08-20 08:09] VITALS: BP 136/78; TEMP 98
[2020-08-20] MEDS: Docusate Calcium (SURFAK) 240 MG CAP PO SCH (08:28)
[2020-08-20] MEDS: Prenatal Vitamin 1 TAB PO SCH (08:28)
[2020-08-20] MEDS: Levothyroxine Sodium 50 MCG TAB PO SCH (08:29)
[2020-08-20] MEDS: HYDROcodone/Acetaminophen 5/325 mg Tablet PO PRN (08:31)
== END 2020-08-20 12:05 | disposition home or self-care (01) | DRG 787 ==
LOC: L&D 05:50 → 3SW 12:33
PROVIDERS: ADMIT Family Medicine; ATTEND Emergency Medicine
PROC: 10D00Z1 Extraction of Products of Conception, Low, Open Approach (ICD-10-PCS; principal; 2020-08-18)
DX: O34.211 Maternal care for low transverse scar from previous cesarean delivery (principal); O72.1 Other immediate postpartum hemorrhage; Z3A.39 39 weeks gestation of pregnancy; Z37.0 Single live birth; O99.284 Endocrine, nutritional and metabolic diseases complicating childbirth; E03.9 Hypothyroidism, unspecified; O99.214 Obesity complicating childbirth; E06.3 Autoimmune thyroiditis; E66.01 Morbid (severe) obesity due to excess calories; O99.892 Other specified diseases and conditions complicating childbirth; N73.6 Female pelvic peritoneal adhesions (postinfective)
CPT/HCPCS: 36415; 51702; 85027; 86780; 86850; 86900; 86901; 87340; 88307; J1885; J2270; J3490